=== PATIENT | male | born 1950 | race Caucasian/White ===

== ENCOUNTER 2017-03-03 19:17 | Observation (INO) | payer BC, MEDICARE, OTHER ==
[2017-03-03] VITALS (8 sets, daily range): BP systolic 128–144; BP diastolic 79–90; PULSE 110–114; RESP 18–20; TEMP 97.3–98.9; O2SAT 90–97
[~2017-03-03] VITALS: Ht 170.2 cm; Wt 84.2 kg
[~2017-03-03 19:17] MED LIST: GLYB1TAB51; LISI40TA; METF-324
[2017-03-03] MEDS ORDERED: SODIUM CHLORIDE 0.9% FLUSH 10 ML FLUSH IVF PRN (19:30)
--- NOTE | 2017-03-03 19:43 | PD ---
HPI Chief Complaint: Syncope/Near-Syncope Time Seen by Provider: 19:26 Travel History International Travel<30 days: No Contact w/Intl Traveler<30days: No Traveled to known affect area: No History of Present Illness HPI truly uncleared as to when this occurred, guestimate of fall/syncope is around 1400 today [facility] cabbg, htn, dm, hyperchol, toe amputations, (of note patient has h/o schizophrenia as well and is not compliant with medications) PFSH Past Medical History Asthma: No Heart Rhythm Problems: No Cardiovascular Problems: Yes High Cholesterol: No Chest Pain: Yes Congestive Heart Failure: No COPD: No Diabetes: Yes Endocrine: Yes Genitourinary: No Hypertension: Yes Immune Disorder: No Musculoskeletal: No Neurologic: No Reproductive: No Respiratory: Yes Integumentary: Yes (ULCER TO LEFT FOOT) Myocardial Infarction: Yes Schizophrenia: Yes (PARANOID) Sleep Apnea: No Thyroid Disease: No Past Surgical History Other Surgery: No Social History Alcohol Use: Yes Tobacco Use: No Substance Use: No Allergies-Medications (Allergen,Severity, Reaction): Coded Allergies: No Known Allergies (Verified Adverse Reaction, Unknown, 03/03/17) Reported Meds & Prescriptions Reported Meds & Active Scripts Active Reported Glucophage (Metformin HCl) 1,000 Mg Tab Prinivil (Lisinopril) 40 Mg Tab Diabeta (Glyburide) 5 Mg Tab Review of Systems Except as stated in HPI: all other systems reviewed are Neg General / Constitutional: No: Fever Eyes: No: Visual changes HENT: No: Headaches Cardiovascular: Positive: Syncope Respiratory: No: Shortness of Breath Gastrointestinal: No: Abdominal Pain Genitourinary: No: Dysuria Musculoskeletal: No: Pain Skin: Positive Other (left eye contusion with laceration) Neurologic: No: Weakness Psychiatric: No: Depression Endocrine: No: Polydipsia Hematologic/Lymphatic: No: Easy Bruising Physical Exam Narrative GENERAL: SKIN: Warm and dry. left periorbital contusion/hematoma with a 3cm laceration above left eyebrow HEAD: Atraumatic. Normocephalic. EYES: Pupils equal and round. No scleral icterus. No injection or drainage. ENT: No nasal bleeding or discharge. Mucous membranes pink and moist. NECK: Trachea midline. No JVD. CARDIOVASCULAR: Regular rate and rhythm. RESPIRATORY: No accessory muscle use. Clear to auscultation. Breath sounds equal bilaterally GASTROINTESTINAL: Abdomen soft, non-tender, nondistended. MUSCULOSKELETAL: Extremities without clubbing, cyanosis, or edema. No obvious deformities. NEUROLOGICAL: Awake and alert. No obvious cranial nerve deficits. Motor grossly within normal limits. Five out of 5 muscle strength in the arms and legs. Normal speech. PSYCHIATRIC: Appropriate mood and affect; insight and judgment normal. Data Data Last Documented VS Vital Signs Date Time Temp Pulse Resp B/P (MAP) Pulse Ox O2 Delivery O2 Flow Rate FiO2 03/03/17 19:42 97 03/03/17 19:35 112 18 Room Air 03/03/17 19:22 98.9 144/90 (108) Orders Orders Electrocardiogram (03/03/17 19:26) Complete Blood Count With Diff (03/03/17 19:26) Comprehensive Metabolic Panel (03/03/17 19:26) Troponin I (03/03/17 19:26) Act Partial Throm Time (Ptt) (03/03/17 19:26) Prothrombin Time / Inr (Pt) (03/03/17 19:26) Chest, Single Ap (03/03/17 19:26) Ct Brain W/O Iv Contrast(Rout) (03/03/17 19:26) Ecg Monitoring (03/03/17 19:26) Iv Access Insert/Monitor (03/03/17 19:26) Oximetry (03/03/17 19:26) Sodium Chloride 0.9% Flush (Ns Flush) (03/03/17 19:30) Ct Facial Bones W/O Iv Cont (03/03/17 19:26) Lidocaine 1% Inj (50 Ml) (Xylocaine 1% I (03/03/17 19:45) Labs Laboratory Tests Test 03/03/17 19:34 MDM Medical Decision Making Medical Screen Exam Complete: Yes Emergency Medical Condition: Yes Medical Record Reviewed: Yes Interpretation(s) sinus tachy, lvh, sig q waves inferiorly Differential Diagnosis facial fx v contusion v ich v scalp hematoma v syncope Procedures Procedure Narrative LACERATION LOCATION: [left forehead just above eyebrow] LENGTH: [3cm-] NUMBER OF STITCHES/JOSE: [1 horizontal mattress, 1 simple interrupted-] REPAIR: The area of the laceration was prepped with Betadine and sterilely draped. The laceration was infiltrated with [4ml of lido 1% w/o epi]. The wound was copiously irrigated and explored without evidence of foreign body, tendon injury or neurovascular injury. The wound was closed using [3-0 prolene] . This was a [single] layer repair. A sterile dressing was applied. The patient was advised to keep the dressing clean and dry. Patient tolerated the procedure well. Corona Torres MD Mar 03, 2017 19:43
[2017-03-03] MEDS ORDERED: LIDOCAINE HCL 1% 50 ML VIAL INFIL ONE (19:45)
--- NOTE | 2017-03-03 19:50 | RADRPT ---
EXAM DATE/TIME: 03/03/2017 19:36 [facility] COMPARISON: No previous studies available for comparison. INDICATIONS : Syncope. MEDICAL HISTORY : Diabetes mellitus type II. Schizophrenia, AFIB SURGICAL HISTORY : CABG. ENCOUNTER: Initial ACUITY: 1 day PAIN SCORE: 0/10 LOCATION: Bilateral chest FINDINGS: Cardiomegaly, median sternotomy wires and clips are present. The lungs are clear. Osseous structures are intact. CONCLUSION: No acute disease. Kwesi Balbuena MD on March 03, 2017 at 19:47 Board Certified Radiologist. This report was verified electronically.
[2017-03-03 19:53] LABS: AUTOMATED NEUTROPHIL # 11.4 TH/MM3 (1.8-7.7); BASOPHIL # 0.3 TH/MM3 (0-0.2); BASOPHIL % 2.2 % (0.0-2.0); EOSINOPHIL % 0.2 % (0.0-4.0); HEMATOCRIT 39.3 % (39.0-51.0); HEMOGLOBIN 13.2 GM/DL (13.0-17.0); LYMPH % 7.4 % (9.0-44.0); MEAN CELL VOLUME 89.6 FL (80.0-100.0); MEAN CORPUSCULAR HEMOGLOBIN 30.1 PG (27.0-34.0); MEAN CORPUSCULAR HGB CONC 33.5 % (32.0-36.0); MEAN PLATELET VOLUME 7.4 FL (7.0-11.0); MONO % 5.2 % (0.0-8.0); MONOCYTE # 0.7 TH/MM3 (0-0.9); PLATELET COUNT 332 TH/MM3 (150-450); RED BLOOD COUNT 4.39 MIL/MM3 (4.50-5.90); RED CELL DISTRIBUTION WIDTH 13.9 % (11.6-17.2); WHITE BLOOD COUNT 13.4 TH/MM3 (4.0-11.0)
[2017-03-03 20:02] LABS: CHLORIDE 102 MEQ/L (98-107); SODIUM (NA) 136 MEQ/L (136-145)
[2017-03-03 20:05] LABS: ALBUMIN 3.6 GM/DL (3.4-5.0); BICARBONATE 24.9 MEQ/L (21.0-32.0); BLOOD UREA NITROGEN 17 MG/DL (7-18); CALCIUM 8.6 MG/DL (8.5-10.1); GLUCOSE,RANDOM 199 MG/DL (74-106)
[2017-03-03 20:08] LABS: ALT (GPT) 35 U/L (12-78); AST (GOT) 30 U/L (15-37); GLOMERULAR FILTRATION RATE 67 ML/MIN (>89)
[2017-03-03 20:10] LABS: TOTAL BILIRUBIN ADULT 0.4 MG/DL (0.2-1.0); TOTAL PROTEIN 7.5 GM/DL (6.4-8.2)
[2017-03-03 20:11] LABS: ALKALINE PHOSPHATASE 100 U/L (45-117)
[2017-03-03 20:13] LABS: TROPONIN I 0.04 NG/ML (0.02-0.05)
--- NOTE | 2017-03-03 20:45 | RADRPT ---
EXAM DATE/TIME: 03/03/2017 20:27 [facility] COMPARISON: No previous studies available for comparison. INDICATIONS : Status post fall with LOC this evening. Patient hit forehead. Laceration to left brow. RADIATION DOSE: 63.28 CTDIvol (mGy) MEDICAL HISTORY : Hypertension. Diabetes mellitus type 2. SURGICAL HISTORY : CABG ENCOUNTER: Initial ACUITY: 1 day PAIN SCALE: 7/10 LOCATION: Left cranial TECHNIQUE: Multiple contiguous axial images were obtained of the head. Using automated exposure control and adj ustment of the mA and/or kV according to patient size, radiation dose was kept as low as reasonably a chievable to obtain optimal diagnostic quality images. DICOM format image data is available electro nically for review and comparison. FINDINGS: Left periorbital soft tissue swelling and scalp hematoma. Ventricles and cisterns are of normal size and configuration. There are no signs of intracranial hemorrhage, acute infarct, or mass. No fracture s. He CONCLUSION: 1. Left frontal scalp hematoma and soft tissue swelling. Kwesi Balbuena MD on March 03, 2017 at 20:42 Board Certified Radiologist. This report was verified electronically.
--- NOTE | 2017-03-03 20:52 | RADRPT ---
EXAM DATE/TIME: 03/03/2017 20:27 [facility] COMPARISON: No previous studies available for comparison. INDICATIONS : Status post fall with LOC this evening. Patient hit forehead. Laceration to left brow. RADIATION DOSE: 34.88 CTDIvol (mGy) MEDICAL HISTORY : Hypertension. Diabetes mellitus type 2. SURGICAL HISTORY : CABG ENCOUNTER: Initial ACUITY: 1 day PAIN SCORE: 7/10 LOCATION: Left facial TECHNIQUE: Volumetric scanning of the facial bones was performed. Using automated exposure control and adjustme nt of the mA and/or kV according to patient size, radiation dose was kept as low as reasonably achiev able to obtain optimal diagnostic quality images. DICOM format image data is available electronicall y for review and comparison. FINDINGS: ORBITS: The orbital and infraorbital osseous structures are intact. The retroconal structures have a normal configuration. No radiopaque foreign bodies are seen. NASAL BONE: The nasal bone and maxillary spine are intact ZYGOMATIC ARCHES: Symmetric without evidence of fracture. SINUSES: Air-fluid level in the right maxillary sinus otherwise normal aeration of the paranasal sinuses. NASAL CAVITY: The nasal septum is intact and midline. The lacrimal ducts are intact. SOFT TISSUES: There is left supraorbital/frontal scalp hematoma measuring 2.7 cm with soft tissue swelling identifi ed. Prominent left cyndi-orbital soft tissue swelling is seen. INTRACRANIAL: No intracranial air seen. CRIBIFORM PLATE: Grossly intact. CONCLUSION: 1. Left periorbital scalp soft tissue swelling and hematoma. 2. Right maxillary sinus air-fluid level. 3. No fractures are seen. Kwesi Balbuena MD on March 03, 2017 at 20:49 Board Certified Radiologist. This report was verified electronically.
[2017-03-03] MEDS ORDERED: XARE20TA PO (21:01)
[2017-03-03] MEDS ORDERED: DEXTROSE 50% IN WATER 50 ML VIAL(D50) IV PUSH PRN (21:15)
[2017-03-03] MEDS ORDERED: SODIUM CHLORIDE 0.9% FLUSH 10 ML FLUSH IV FLUSH PRN (21:15)
[2017-03-03] MEDS ORDERED: GLUCAGON 1 MG/ML VIAL OTHER PRN (21:15)
[2017-03-03 21:38] LABS: PROTHROMBIN TIME - PATIENT 11.6 SEC (9.8-11.6)
[2017-03-03] MEDS ORDERED: METF850T PO (21:41)
[2017-03-03] MEDS ORDERED: LISI-515 PO (21:41)
[2017-03-03] MEDS ORDERED: AMIO200T PO (21:41)
[2017-03-03] MEDS ORDERED: ATOR80TA45 PO (21:41)
[2017-03-03] MEDS ORDERED: KAOP240C PO (21:41)
[2017-03-03] MEDS ORDERED: ASPI-516 CHEW (21:41)
[2017-03-03] MEDS ORDERED: NITR1SUB3 SL (21:41)
[2017-03-03] MEDS ORDERED: TAMS0.4C4 PO (21:41)
--- NOTE | 2017-03-03 22:31 | RADRPT ---
EXAM DATE/TIME: 03/03/2017 22:01 [facility] COMPARISON: No previous studies available for comparison. INDICATIONS : Syncope. MEDICAL HISTORY : Myocardial infarction. Hypertension. Diabetes. SURGICAL HISTORY : CABG. Coronary artery stent. Right big toe amputated. ENCOUNTER: Initial ACUITY: 1 day PAIN SCORE: 2/10 LOCATION: Bilateral neck PEAK SYSTOLIC VELOCITIES (cm/sec): ICA/CCA RATIO: Right: 2.2 Left: 1.4 ICA: Right: 94 Left: 78 CCA: Right: 43 Left: 56 ECA: Right: 64 Left: 108 VERTEBRAL: Right: 36 antegrade Left: 43 antegrade Elevated flow velocities and ICA/CCA ratios have been found to correlate with increased degrees of vessel stenosis, calculated as percentage of diameter relative to a normal segment of distal ICA/CCA FINDINGS: RIGHT CAROTID: No significant stenosis is visualized. The waveforms are within normal limits. LEFT CAROTID: No significant stenosis is visualized. The waveforms are within normal limits. VERTEBRAL ARTERIES: Antegrade flow is seen in both vertebral arteries. MISCELLANEOUS: None. CONCLUSION: 1. No evidence for hemodynamically significant stenosis. Moderate atherosclerosis is seen bilaterally . Kwesi Balbuena MD on March 03, 2017 at 22:28 Board Certified Radiologist. This report was verified electronically.
[2017-03-03] MEDS: ACETAMINOPHEN/HYDROcodone 325 MG/5 MG TAB PO PRN (23:10)
[2017-03-03] MEDS ORDERED: MORPHINE SULFATE 2 MG/ML INJ IV PUSH PRN (23:15)
[2017-03-04] MEDS: ACETAMINOPHEN/HYDROcodone 325 MG/5 MG TAB PO PRN ×4 (03:37→16:58)
[2017-03-04 04:00] VITALS: BP 123/60; PULSE 77; RESP 20; TEMP 96.6; O2SAT 94
[2017-03-04 07:18] LABS: AUTOMATED NEUTROPHIL # 6.6 TH/MM3 (1.8-7.7); BASOPHIL % 0.4 % (0.0-2.0); EOSINOPHIL # 0.1 TH/MM3 (0-0.4); EOSINOPHIL % 1.6 % (0.0-4.0); HEMATOCRIT 39.1 % (39.0-51.0); HEMOGLOBIN 13.2 GM/DL (13.0-17.0); LYMPHOCYTE # 1.4 TH/MM3 (1.0-4.8); MEAN CORPUSCULAR HEMOGLOBIN 30.6 PG (27.0-34.0); MEAN CORPUSCULAR HGB CONC 33.6 % (32.0-36.0); MEAN PLATELET VOLUME 7.6 FL (7.0-11.0); MONO % 11.4 % (0.0-8.0); NEUT % 71.6 % (16.0-70.0); PLATELET COUNT 297 TH/MM3 (150-450); RED CELL DISTRIBUTION WIDTH 14.7 % (11.6-17.2); WHITE BLOOD COUNT 9.1 TH/MM3 (4.0-11.0)
[2017-03-04 07:25] LABS: BICARBONATE 29.9 MEQ/L (21.0-32.0)
[2017-03-04 07:28] LABS: CREATININE 0.99 MG/DL (0.60-1.30)
[2017-03-04 08:00] VITALS: BP 139/65; PULSE 40; RESP 18; TEMP 97; O2SAT 95
[2017-03-04] MEDS: INSULIN ASPART SUPPLEMENTAL SCALE SQ SCH ×3 (08:00→16:57)
[2017-03-04 08:50] VITALS: PULSE 79
[2017-03-04] MEDS ORDERED: SODIUM CHLORIDE 0.9% FLUSH 10 ML FLUSH IV FLUSH SCH (09:00)
[2017-03-04] MEDS ORDERED: AMIODARONE 200 MG TAB PO SCH (11:00)
[2017-03-04] MEDS ORDERED: ASPIRIN 81 MG CHEW TAB CHEW SCH (11:00)
[2017-03-04] MEDS ORDERED: RIVAROXABAN 20 MG TAB PO SCH (11:00)
[2017-03-04 12:00] VITALS: BP 148/73; PULSE 84; RESP 18; TEMP 97.7; O2SAT 95
--- NOTE | 2017-03-04 12:05 | EKG ---
Date Performed: 03/03/2017 Time Performed: 19:32:52 PTAGE: 66 years EKG: Sinus tachycardia LEFT ANTERIOR FASCICULAR BLOCK INFERIOR MYOCARDIAL INFARCTION MODERATE T- WAVE ABNORMALITY, CONSIDER LATERAL ISCHEMIA ABNORMAL ECG PREVIOUS TRACING : 01/26/2006 05.51 DOCTOR: Chris Esquivel Interpretating Date/Time 03/04/2017 12:03:32
--- NOTE | 2017-03-04 15:38 | HHI.HP ---
[facility] Service [facility] Primary Care Physician Non-Staff Admission Diagnosis SYNCOPE, LEFT PERIORBITAL CONTUSION Diagnoses: (1) Syncope (2) Elevated troponin I level (3) Forehead laceration Travel History International Travel<30 Days: No Contact w/Intl Traveler <30 Da: No Traveled to Known Affected Are: No History of Present Illness This is a pleasant 66 year-old female with past medical history of type 2 diabetes, coronary artery disease status post CABG 1 year ago, paroxysmal atrial fibrillation who presented to the ER last night after a syncopal episode in which she fell and hit his left forehead. The patient states he had been working outdoors in the yard all day. He was getting dizzy. As he was standing outside his garage he felt dizziness, on and then he passed out falling forward and hitting his left forehead. There was no seizure- like activity no bowel incontinence. The patient has not had any chest pain or chest pressure or exertional dyspnea. The patient has no previous history of syncope. The patient is supposed to take Xarelto for atrial fibrillation but stopped taking it due to concerns about easy bruising and he did not understand why he was supposed to take it; he states his brownfield redevelopment site manager is aware that he no longer takes it. The patient takes only one quarter of an 81 mg aspirin daily due to concerns about bruising. The patient has a self purchased device that he states tells him whether he is in atrial fibrillation or not by placing his fingers on it. Today the device is telling him he is in atrial fibrillation, however EKG and telemetry show that he is in sinus rhythm. Patient states he has not had a stress test since his bypass one year ago. His brownfield redevelopment site manager is Dr. Marvin in [place]. He has an appointment with him this month. In the emergency insole department worker CT and maxillofacial CT were negative for acute fracture or bleed. He did have a left forehead laceration that was sutured in the emergency department. The patient today states that he feels better with less swelling around his left eye. He has remained in sinus rhythm overnight. The patient would like to go home. The patient is ambulated 200 feet with physical therapy. Patient declines stress test stating he would prefer to follow-up with his brownfield redevelopment site manager. Review of Systems Constitutional: DENIES: Fever, Chills Eyes: DENIES: Blurred vision, Diplopia Ears, nose, mouth, throat: DENIES: Throat pain, Running Nose Respiratory: DENIES: Cough, Shortness of breath Cardiovascular: COMPLAINS OF: Syncope, DENIES: Chest pain, Palpitations, Dyspnea on Exertion Gastrointestinal: DENIES: Black stools, Nausea, Vomiting Genitourinary: DENIES: Hematuria, Dysuria Musculoskeletal: DENIES: Back pain, Neck pain Integumentary: DENIES: Pruritus, Rash Hematologic/lymphatic: DENIES: Lymphadenopathy Neurologic: DENIES: Abnormal gait, Headache Psychiatric: DENIES: Anxiety, Confusion Past Family Social History Past Medical History Paroxysmal atrial fibrillation Hypertension Diabetes type 2 Coronary artery disease status post CABG 1 year ago Myocardial infarction Hyperlipidemia BPH Reported Medications Allergies Coded Allergies Type Severity Reaction Last Updated Verified No Known Allergies Allergy Unknown 03/03/17 Yes Active Scripts Medications Dose Route/Sig Max Daily Dose Days Date Category Dose Instructions Metformin (Metformin HCl) 850 Mg Tab 850 Mg PO DAILY 03/03/17 Reported With a meal Lisinopril 20 Mg Tab 20 Mg PO DAILY 03/03/17 Reported Surfak (Docusate Calcium) 240 Mg Cap 240 Mg PO DAILY 03/03/17 Reported Nitroglycerin SL (Nitroglycerin) 0.4 Mg Subl 0.4 Mg SL DIRECTED PRN 03/03/17 Reported ONE TABLET UNDER THE TONGUE NEEDED FOR CHEST PAIN, MAY REPEAT EVERY FIVE MINUTES FOR A TOTAL OF 3 DOSES OR CALL 911 IF NO RELIEF Tamsulosin (Tamsulosin HCl) 0.4 Mg Cap 0.4 Mg PO HS 03/03/17 Reported Atorvastatin (Atorvastatin Calcium) 80 Mg Tab 80 Mg PO HS 03/03/17 Reported Aspirin 81 Mg Chew 81 Mg CHEW DAILY 03/03/17 Reported Amiodarone (Amiodarone HCl) 200 Mg Tab 200 Mg PO DAILY 03/03/17 Reported Xarelto (Rivaroxaban) 20 Mg Tab 20 Mg PO DAILY 03/03/17 Reported Allergies: Coded Allergies: No Known Allergies (Verified Allergy, Unknown, 03/03/17) Family History Father had coronary artery disease. Social History No tobacco use. He used to drink moderately but stopped several years ago. Physical Exam Vital Signs Vital Signs Date Time Temp Pulse Resp B/P (MAP) Pulse Ox O2 Delivery O2 Flow Rate FiO2 03/04/17 12:00 97.7 84 18 148/73 (98) 95 03/04/17 08:00 97.0 40 18 139/65 (89) 95 03/04/17 04:00 96.6 77 20 123/60 (81) 94 03/03/17 22:45 110 03/03/17 22:34 97.3 110 20 137/84 (101) 96 03/03/17 22:28 111 18 138/82 (100) 96 03/03/17 21:17 111 18 128/79 (95) 96 Room Air 03/03/17 20:06 114 18 140/88 (105) 96 Room Air 03/03/17 19:42 97 03/03/17 19:35 112 18 97 Room Air 03/03/17 19:32 112 18 139/88 (105) 96 Room Air 03/03/17 19:22 98.9 114 20 144/90 (108) 94 Physical Exam GENERAL: Well-nourished, well-developed patient. SKIN: Warm and dry. HEAD: Left forehead laceration just above left eyebrow clean dry and intact with sutures. EYES: He has some mild left cyndi-orbital edema and ecchymosis. Pupils equal reactive to light. No scleral icterus. No injection or drainage. NECK: Supple, trachea midline. No JVD or lymphadenopathy. CARDIOVASCULAR: Regular rate and rhythm without murmurs, gallops, or rubs. RESPIRATORY: Breath sounds equal bilaterally. No accessory muscle use. GASTROINTESTINAL: Abdomen soft, non-tender, nondistended. EXTREMITIES: No cyanosis, or edema. NEUROLOGICAL: Awake, alert, and oriented x 3. Non-focal. Laboratory Laboratory Tests Test 03/03/17 19:34 03/04/17 01:30 03/04/17 06:16 03/04/17 12:18 White Blood Count 13.4 9.1 Red Blood Count 4.39 4.30 Hemoglobin 13.2 13.2 Hematocrit 39.3 39.1 Mean Corpuscular Volume 89.6 91.0 Mean Corpuscular Hemoglobin 30.1 30.6 Mean Corpuscular Hemoglobin Concent 33.5 33.6 Red Cell Distribution Width 13.9 14.7 Platelet Count 332 297 Mean Platelet Volume 7.4 7.6 Neutrophils (%) (Auto) 85.0 71.6 Lymphocytes (%) (Auto) 7.4 15.0 Monocytes (%) (Auto) 5.2 11.4 Eosinophils (%) (Auto) 0.2 1.6 Basophils (%) (Auto) 2.2 0.4 Neutrophils # (Auto) 11.4 6.6 Lymphocytes # (Auto) 1.0 1.4 Monocytes # (Auto) 0.7 1.0 Eosinophils # (Auto) 0.0 0.1 Basophils # (Auto) 0.3 0.0 CBC Comment AUTO DIFF DIFF FINAL Differential Comment AUTO DIFF CONFIRMED Platelet Estimate NORMAL Platelet Morphology Comment NORMAL Red Cell Morphology Comment NORMAL Prothrombin Time 11.6 Prothromb Time International Ratio 1.0 Activated Partial Thromboplast Time 29.9 Blood Urea Nitrogen 17 16 Creatinine 1.10 0.99 Random Glucose 199 128 Total Protein 7.5 Albumin 3.6 Calcium Level 8.6 9.0 Alkaline Phosphatase 100 Aspartate Amino Transf (AST/SGOT) 30 Alanine Aminotransferase (ALT/SGPT) 35 Total Bilirubin 0.4 Sodium Level 136 138 Potassium Level 4.2 4.2 Chloride Level 102 102 Carbon Dioxide Level 24.9 29.9 Anion Gap 9 6 Estimat Glomerular Filtration Rate 67 75 Troponin I 0.04 0.14 0.17 Result Diagram: 03/04/1761503/04/17615 Imaging Last Impressions Maxillofacial CT 03/03/171925 Signed Impressions: Service Date/Time: Friday, March 03, 2017 20:27 - CONCLUSION: 1. Left periorbital scalp soft tissue swelling and hematoma. 2. Right maxillary sinus air-fluid level. 3. No fractures are seen. Kwesi Balbuena MD Head CT 03/03/171925 Signed Impressions: Service Date/Time: Friday, March 03, 2017 20:27 - CONCLUSION: 1. Left frontal scalp hematoma and soft tissue swelling. Kwesi Balbuena MD Chest X-Ray 03/03/171925 Signed Impressions: Service Date/Time: Friday, March 03, 2017 19:36 - CONCLUSION: No acute disease. Kwesi Balbuena MD Carotid Artery Ultrasound 03/03/17 0000 Signed Impressions: Service Date/Time: Saturday, March 03, 2017 22:01 - CONCLUSION: 1. No evidence for hemodynamically significant stenosis. Moderate atherosclerosis is seen bilaterally. MD Ilya Levin VTE Risk Assessment Caprini VTE Risk Assessment: Mod/High Risk (score >= 2) Caprini Risk Assessment Model Point Value = 1 Point Value = 2 Point Value = 3 Point Value = 5 Age 41-60 Minor surgery BMI > 25 kg/m2 Swollen legs Varicose veins or History of unexplained or recurrent spontaneous Oral contraceptives or hormone replacement Sepsis (< 1 month) Serious lung disease, including pneumonia (< 1 month) Abnormal pulmonary function Acute myocardial infarction Congestive heart failure (< 1 month) History of inflammatory bowel disease Medical patient at bed rest Age 61-74 Arthroscopic surgery Major open surgery (> 45 min) Laparoscopic surgery (> 45 min) Malignancy Confined to bed (> 72 hours) Immobilizing plaster cast Central venous access Age >= 75 History of VTE Family history of VTE Factor V Leiden Prothrombin [id number] Lupus anticoagulant Anticardiolipin antibodies Elevated serum homocysteine Heparin-induced thrombocytopenia Other congenital or acquired thrombophilia Stroke (< 1 month) Elective arthroplasty Hip, pelvis, or leg fracture Acute spinal cord injury (< 1 month) Prophylaxis Regimen Total Risk Factor Score Risk Level Prophylaxis Regimen 0-1 Low Early ambulation 2 Moderate Order ONE of the following: *Sequential Compression Device (SCD) *Heparin 5000 units SQ BID 3-4 Higher Order ONE of the following medications: *Heparin 5000 units SQ TID *Enoxaparin/Lovenox 40 mg SQ daily (WT < 150 kg, CrCl > 30 mL/min) *Enoxaparin/Lovenox 30 mg SQ daily (WT < 150 kg, CrCl > 10-29 mL/min) *Enoxaparin/Lovenox 30 mg SQ BID (WT < 150 kg, CrCl > 30 mL/min) AND/OR *Sequential Compression Device (SCD) 5 or more Highest Order ONE of the following medications: *Heparin 5000 units SQ TID (Preferred with Epidurals) *Enoxaparin/Lovenox 40 mg SQ daily (WT < 150 kg, CrCl > 30 mL/min) *Enoxaparin/Lovenox 30 mg SQ daily (WT < 150 kg, CrCl > 10-29 mL/min) *Enoxaparin/Lovenox 30 mg SQ BID (WT < 150 kg, CrCl > 30 mL/min) AND *Sequential Compression Device (SCD) Assessment and Plan Assessment and Plan -Syncope, it sounds as if it was orthostatic in nature with presyncopal symptoms and the patient had been working outside in his yard. No orthostatic vital signs collected in the emergency department. EKG showed sinus rhythm. Doppler carotid negative for stenosis. 2-D echocardiogram pending. Patient is ambulating well. -Left forehead laceration. Sutures placed in the ED and need to be removed in 7 days. Patient will follow-up with his primary care physician to do this. -Minimal troponin elevation to 0.17. In the absence of chest pain or chest pressure. Patient status post CABG 1 year ago. I did recommend nuclear stress test however the patient declines stating he would like to follow-up with his brownfield redevelopment site manager this month. Patient was encouraged to take aspirin daily. Encouraged to return to ER if he should develop chest pain. -Paroxysmal atrial fibrillation. In sinus rhythm throughout hospitalization. Patient is supposed to be taking Xarelto but stopped taking that. He states his brownfield redevelopment site manager is aware. I did encourage patient to take 81 mg of aspirin a day at least and discuss further with his brownfield redevelopment site manager anticoagulation. Continue amiodarone. Patient may be discharged home later today if his echocardiogram does not show significant valvular disease. Patient to follow-up with primary care physician in one week and with his brownfield redevelopment site manager this month. Sutures to be removed in 7 days. Patient encouraged to stay hydrated and avoid strenuous activity. Patient was provided a note excusing him from work for the next week as he works as a sales team manager and has significant bruising around the left eye. Ashley Brooks MD Mar 04, 2017 15:38
--- NOTE | 2017-03-04 15:38 | HHI.HP ---
[facility] Non-Staff Admission Diagnosis SYNCOPE, LEFT PERIORBITAL CONTUSION Diagnoses: (1) Syncope (2) Elevated troponin I level (3) Forehead laceration Travel History International Travel<30 Days: No Contact w/Intl Traveler <30 Da: No Traveled to Known Affected Are: No History of Present Illness This is a pleasant 66 year-old female with past medical history of type 2 diabetes, coronary artery disease status post CABG 1 year ago, paroxysmal atrial fibrillation who presented to the ER last night after a syncopal episode in which she fell and hit his left forehead. The patient states he had been working outdoors in the yard all day. He was getting dizzy. As he was standing outside his garage he felt dizziness, on and then he passed out falling forward and hitting his left forehead. There was no seizure- like activity no bowel incontinence. The patient has not had any chest pain or chest pressure or exertional dyspnea. The patient has no previous history of syncope. The patient is supposed to take Xarelto for atrial fibrillation but stopped taking it due to concerns about easy bruising and he did not understand why he was supposed to take it; he states his food and beverage assistant is aware that he no longer takes it. The patient takes only one quarter of an 81 mg aspirin daily due to concerns about bruising. The patient has a self purchased device that he states tells him whether he is in atrial fibrillation or not by placing his fingers on it. Today the device is telling him he is in atrial fibrillation, however EKG and telemetry show that he is in sinus rhythm. Patient states he has not had a stress test since his bypass one year ago. His food and beverage assistant is Dr. Marvin in [place]. He has an appointment with him this month. In the emergency departmental secretary CT and maxillofacial CT were negative for acute fracture or bleed. He did have a left forehead laceration that was sutured in the emergency department. The patient today states that he feels better with less swelling around his left eye. He has remained in sinus rhythm overnight. The patient would like to go home. The patient is ambulated 200 feet with physical therapy. Patient declines stress test stating he would prefer to follow-up with his food and beverage assistant. Review of Systems Constitutional: DENIES: Fever, Chills Eyes: DENIES: Blurred vision, Diplopia Ears, nose, mouth, throat: DENIES: Throat pain, Running Nose Respiratory: DENIES: Cough, Shortness of breath Cardiovascular: COMPLAINS OF: Syncope, DENIES: Chest pain, Palpitations, Dyspnea on Exertion Gastrointestinal: DENIES: Black stools, Nausea, Vomiting Genitourinary: DENIES: Hematuria, Dysuria Musculoskeletal: DENIES: Back pain, Neck pain Integumentary: DENIES: Pruritus, Rash Hematologic/lymphatic: DENIES: Lymphadenopathy Neurologic: DENIES: Abnormal gait, Headache Psychiatric: DENIES: Anxiety, Confusion Past Family Social History Past Medical History Paroxysmal atrial fibrillation Hypertension Diabetes type 2 Coronary artery disease status post CABG 1 year ago Myocardial infarction Hyperlipidemia BPH Reported Medications Allergies Coded Allergies Type Severity Reaction Last Updated Verified No Known Allergies Allergy Unknown 03/03/17 Yes Active Scripts Medications Dose Route/Sig Max Daily Dose Days Date Category Dose Instructions Metformin (Metformin HCl) 850 Mg Tab 850 Mg PO DAILY 03/03/17 Reported With a meal Lisinopril 20 Mg Tab 20 Mg PO DAILY 03/03/17 Reported Surfak (Docusate Calcium) 240 Mg Cap 240 Mg PO DAILY 03/03/17 Reported Nitroglycerin SL (Nitroglycerin) 0.4 Mg Subl 0.4 Mg SL DIRECTED PRN 03/03/17 Reported ONE TABLET UNDER THE TONGUE NEEDED FOR CHEST PAIN, MAY REPEAT EVERY FIVE MINUTES FOR A TOTAL OF 3 DOSES OR CALL 911 IF NO RELIEF Tamsulosin (Tamsulosin HCl) 0.4 Mg Cap 0.4 Mg PO HS 03/03/17 Reported Atorvastatin (Atorvastatin Calcium) 80 Mg Tab 80 Mg PO HS 03/03/17 Reported Aspirin 81 Mg Chew 81 Mg CHEW DAILY 03/03/17 Reported Amiodarone (Amiodarone HCl) 200 Mg Tab 200 Mg PO DAILY 03/03/17 Reported Xarelto (Rivaroxaban) 20 Mg Tab 20 Mg PO DAILY 03/03/17 Reported Allergies: Coded Allergies: No Known Allergies (Verified Allergy, Unknown, 03/03/17) Family History Father had coronary artery disease. Social History No tobacco use. He used to drink moderately but stopped several years ago. Physical Exam Vital Signs Vital Signs Date Time Temp Pulse Resp B/P (MAP) Pulse Ox O2 Delivery O2 Flow Rate FiO2 03/04/17 12:00 97.7 84 18 148/73 (98) 95 03/04/17 08:00 97.0 40 18 139/65 (89) 95 03/04/17 04:00 96.6 77 20 123/60 (81) 94 03/03/17 22:45 110 03/03/17 22:34 97.3 110 20 137/84 (101) 96 03/03/17 22:28 111 18 138/82 (100) 96 03/03/17 21:17 111 18 128/79 (95) 96 Room Air 03/03/17 20:06 114 18 140/88 (105) 96 Room Air 03/03/17 19:42 97 03/03/17 19:35 112 18 97 Room Air 03/03/17 19:32 112 18 139/88 (105) 96 Room Air 03/03/17 19:22 98.9 114 20 144/90 (108) 94 Physical Exam GENERAL: Well-nourished, well-developed patient. SKIN: Warm and dry. HEAD: Left forehead laceration just above left eyebrow clean dry and intact with sutures. EYES: He has some mild left cyndi-orbital edema and ecchymosis. Pupils equal reactive to light. No scleral icterus. No injection or drainage. NECK: Supple, trachea midline. No JVD or lymphadenopathy. CARDIOVASCULAR: Regular rate and rhythm without murmurs, gallops, or rubs. RESPIRATORY: Breath sounds equal bilaterally. No accessory muscle use. GASTROINTESTINAL: Abdomen soft, non-tender, nondistended. EXTREMITIES: No cyanosis, or edema. NEUROLOGICAL: Awake, alert, and oriented x 3. Non-focal. Laboratory Laboratory Tests Test 03/03/17 19:34 03/04/17 01:30 03/04/17 06:16 03/04/17 12:18 White Blood Count 13.4 9.1 Red Blood Count 4.39 4.30 Hemoglobin 13.2 13.2 Hematocrit 39.3 39.1 Mean Corpuscular Volume 89.6 91.0 Mean Corpuscular Hemoglobin 30.1 30.6 Mean Corpuscular Hemoglobin Concent 33.5 33.6 Red Cell Distribution Width 13.9 14.7 Platelet Count 332 297 Mean Platelet Volume 7.4 7.6 Neutrophils (%) (Auto) 85.0 71.6 Lymphocytes (%) (Auto) 7.4 15.0 Monocytes (%) (Auto) 5.2 11.4 Eosinophils (%) (Auto) 0.2 1.6 Basophils (%) (Auto) 2.2 0.4 Neutrophils # (Auto) 11.4 6.6 Lymphocytes # (Auto) 1.0 1.4 Monocytes # (Auto) 0.7 1.0 Eosinophils # (Auto) 0.0 0.1 Basophils # (Auto) 0.3 0.0 CBC Comment AUTO DIFF DIFF FINAL Differential Comment AUTO DIFF CONFIRMED Platelet Estimate NORMAL Platelet Morphology Comment NORMAL Red Cell Morphology Comment NORMAL Prothrombin Time 11.6 Prothromb Time International Ratio 1.0 Activated Partial Thromboplast Time 29.9 Blood Urea Nitrogen 17 16 Creatinine 1.10 0.99 Random Glucose 199 128 Total Protein 7.5 Albumin 3.6 Calcium Level 8.6 9.0 Alkaline Phosphatase 100 Aspartate Amino Transf (AST/SGOT) 30 Alanine Aminotransferase (ALT/SGPT) 35 Total Bilirubin 0.4 Sodium Level 136 138 Potassium Level 4.2 4.2 Chloride Level 102 102 Carbon Dioxide Level 24.9 29.9 Anion Gap 9 6 Estimat Glomerular Filtration Rate 67 75 Troponin I 0.04 0.14 0.17 Result Diagram: 03/04/1761503/04/17615 Imaging Last Impressions Maxillofacial CT 03/03/171925 Signed Impressions: Service Date/Time: Friday, March 03, 2017 20:27 - CONCLUSION: 1. Left periorbital scalp soft tissue swelling and hematoma. 2. Right maxillary sinus air-fluid level. 3. No fractures are seen. Kwesi Balbuena MD Head CT 03/03/171925 Signed Impressions: Service Date/Time: Friday, March 03, 2017 20:27 - CONCLUSION: 1. Left frontal scalp hematoma and soft tissue swelling. Kwesi Balbuena MD Chest X-Ray 03/03/171925 Signed Impressions: Service Date/Time: Friday, March 03, 2017 19:36 - CONCLUSION: No acute disease. Kwesi Balbuena MD Carotid Artery Ultrasound 03/03/17 0000 Signed Impressions: Service Date/Time: Saturday, March 03, 2017 22:01 - CONCLUSION: 1. No evidence for hemodynamically significant stenosis. Moderate atherosclerosis is seen bilaterally. MD Ilya Levin VTE Risk Assessment Caprini VTE Risk Assessment: Mod/High Risk (score >= 2) Caprini Risk Assessment Model Point Value = 1 Point Value = 2 Point Value = 3 Point Value = 5 Age 41-60 Minor surgery BMI > 25 kg/m2 Swollen legs Varicose veins or History of unexplained or recurrent spontaneous Oral contraceptives or hormone replacement Sepsis (< 1 month) Serious lung disease, including pneumonia (< 1 month) Abnormal pulmonary function Acute myocardial infarction Congestive heart failure (< 1 month) History of inflammatory bowel disease Medical patient at bed rest Age 61-74 Arthroscopic surgery Major open surgery (> 45 min) Laparoscopic surgery (> 45 min) Malignancy Confined to bed (> 72 hours) Immobilizing plaster cast Central venous access Age >= 75 History of VTE Family history of VTE Factor V Leiden Prothrombin [id number] Lupus anticoagulant Anticardiolipin antibodies Elevated serum homocysteine Heparin-induced thrombocytopenia Other congenital or acquired thrombophilia Stroke (< 1 month) Elective arthroplasty Hip, pelvis, or leg fracture Acute spinal cord injury (< 1 month) Prophylaxis Regimen Total Risk Factor Score Risk Level Prophylaxis Regimen 0-1 Low Early ambulation 2 Moderate Order ONE of the following: *Sequential Compression Device (SCD) *Heparin 5000 units SQ BID 3-4 Higher Order ONE of the following medications: *Heparin 5000 units SQ TID *Enoxaparin/Lovenox 40 mg SQ daily (WT < 150 kg, CrCl > 30 mL/min) *Enoxaparin/Lovenox 30 mg SQ daily (WT < 150 kg, CrCl > 10-29 mL/min) *Enoxaparin/Lovenox 30 mg SQ BID (WT < 150 kg, CrCl > 30 mL/min) AND/OR *Sequential Compression Device (SCD) 5 or more Highest Order ONE of the following medications: *Heparin 5000 units SQ TID (Preferred with Epidurals) *Enoxaparin/Lovenox 40 mg SQ daily (WT < 150 kg, CrCl > 30 mL/min) *Enoxaparin/Lovenox 30 mg SQ daily (WT < 150 kg, CrCl > 10-29 mL/min) *Enoxaparin/Lovenox 30 mg SQ BID (WT < 150 kg, CrCl > 30 mL/min) AND *Sequential Compression Device (SCD) Assessment and Plan Assessment and Plan -Syncope, it sounds as if it was orthostatic in nature with presyncopal symptoms and the patient had been working outside in his yard. No orthostatic vital signs collected in the emergency department. EKG showed sinus rhythm. Doppler carotid negative for stenosis. 2-D echocardiogram pending. Patient is ambulating well. -Left forehead laceration. Sutures placed in the ED and need to be removed in 7 days. Patient will follow-up with his primary care physician to do this. -Minimal troponin elevation to 0.17. In the absence of chest pain or chest pressure. Patient status post CABG 1 year ago. I did recommend nuclear stress test however the patient declines stating he would like to follow-up with his food and beverage assistant this month. Patient was encouraged to take aspirin daily. Encouraged to return to ER if he should develop chest pain. -Paroxysmal atrial fibrillation. In sinus rhythm throughout hospitalization. Patient is supposed to be taking Xarelto but stopped taking that. He states his food and beverage assistant is aware. I did encourage patient to take 81 mg of aspirin a day at least and discuss further with his food and beverage assistant anticoagulation. Continue amiodarone. Patient may be discharged home later today if his echocardiogram does not show significant valvular disease. Patient to follow-up with primary care physician in one week and with his food and beverage assistant this month. Sutures to be removed in 7 days. Patient encouraged to stay hydrated and avoid strenuous activity. Patient was provided a note excusing him from work for the next week as he works as a applications sales consultant and has significant bruising around the left eye. Ashley Brooks MD Mar 04, 2017 15:38
--- NOTE | 2017-03-04 15:38 | HHI.HP ---
[facility] Service [facility] Primary Care Physician Non-Staff Admission Diagnosis SYNCOPE, LEFT PERIORBITAL CONTUSION Diagnoses: (1) Syncope (2) Elevated troponin I level (3) Forehead laceration Travel History International Travel<30 Days: No Contact w/Intl Traveler <30 Da: No Traveled to Known Affected Are: No History of Present Illness This is a pleasant 66 year-old female with past medical history of type 2 diabetes, coronary artery disease status post CABG 1 year ago, paroxysmal atrial fibrillation who presented to the ER last night after a syncopal episode in which she fell and hit his left forehead. The patient states he had been working outdoors in the yard all day. He was getting dizzy. As he was standing outside his garage he felt dizziness, on and then he passed out falling forward and hitting his left forehead. There was no seizure- like activity no bowel incontinence. The patient has not had any chest pain or chest pressure or exertional dyspnea. The patient has no previous history of syncope. The patient is supposed to take Xarelto for atrial fibrillation but stopped taking it due to concerns about easy bruising and he did not understand why he was supposed to take it; he states his estate and trust tax principal is aware that he no longer takes it. The patient takes only one quarter of an 81 mg aspirin daily due to concerns about bruising. The patient has a self purchased device that he states tells him whether he is in atrial fibrillation or not by placing his fingers on it. Today the device is telling him he is in atrial fibrillation, however EKG and telemetry show that he is in sinus rhythm. Patient states he has not had a stress test since his bypass one year ago. His estate and trust tax principal is Dr. Marvin in [place]. He has an appointment with him this month. In the emergency department supervisor CT and maxillofacial CT were negative for acute fracture or bleed. He did have a left forehead laceration that was sutured in the emergency department. The patient today states that he feels better with less swelling around his left eye. He has remained in sinus rhythm overnight. The patient would like to go home. The patient is ambulated 200 feet with physical therapy. Patient declines stress test stating he would prefer to follow-up with his estate and trust tax principal. Review of Systems Constitutional: DENIES: Fever, Chills Eyes: DENIES: Blurred vision, Diplopia Ears, nose, mouth, throat: DENIES: Throat pain, Running Nose Respiratory: DENIES: Cough, Shortness of breath Cardiovascular: COMPLAINS OF: Syncope, DENIES: Chest pain, Palpitations, Dyspnea on Exertion Gastrointestinal: DENIES: Black stools, Nausea, Vomiting Genitourinary: DENIES: Hematuria, Dysuria Musculoskeletal: DENIES: Back pain, Neck pain Integumentary: DENIES: Pruritus, Rash Hematologic/lymphatic: DENIES: Lymphadenopathy Neurologic: DENIES: Abnormal gait, Headache Psychiatric: DENIES: Anxiety, Confusion Past Family Social History Past Medical History Paroxysmal atrial fibrillation Hypertension Diabetes type 2 Coronary artery disease status post CABG 1 year ago Myocardial infarction Hyperlipidemia BPH Reported Medications Allergies Coded Allergies Type Severity Reaction Last Updated Verified No Known Allergies Allergy Unknown 03/03/17 Yes Active Scripts Medications Dose Route/Sig Max Daily Dose Days Date Category Dose Instructions Metformin (Metformin HCl) 850 Mg Tab 850 Mg PO DAILY 03/03/17 Reported With a meal Lisinopril 20 Mg Tab 20 Mg PO DAILY 03/03/17 Reported Surfak (Docusate Calcium) 240 Mg Cap 240 Mg PO DAILY 03/03/17 Reported Nitroglycerin SL (Nitroglycerin) 0.4 Mg Subl 0.4 Mg SL DIRECTED PRN 03/03/17 Reported ONE TABLET UNDER THE TONGUE NEEDED FOR CHEST PAIN, MAY REPEAT EVERY FIVE MINUTES FOR A TOTAL OF 3 DOSES OR CALL 911 IF NO RELIEF Tamsulosin (Tamsulosin HCl) 0.4 Mg Cap 0.4 Mg PO HS 03/03/17 Reported Atorvastatin (Atorvastatin Calcium) 80 Mg Tab 80 Mg PO HS 03/03/17 Reported Aspirin 81 Mg Chew 81 Mg CHEW DAILY 03/03/17 Reported Amiodarone (Amiodarone HCl) 200 Mg Tab 200 Mg PO DAILY 03/03/17 Reported Xarelto (Rivaroxaban) 20 Mg Tab 20 Mg PO DAILY 03/03/17 Reported Allergies: Coded Allergies: No Known Allergies (Verified Allergy, Unknown, 03/03/17) Family History Father had coronary artery disease. Social History No tobacco use. He used to drink moderately but stopped several years ago. Physical Exam Vital Signs Vital Signs Date Time Temp Pulse Resp B/P (MAP) Pulse Ox O2 Delivery O2 Flow Rate FiO2 03/04/17 12:00 97.7 84 18 148/73 (98) 95 03/04/17 08:00 97.0 40 18 139/65 (89) 95 03/04/17 04:00 96.6 77 20 123/60 (81) 94 03/03/17 22:45 110 03/03/17 22:34 97.3 110 20 137/84 (101) 96 03/03/17 22:28 111 18 138/82 (100) 96 03/03/17 21:17 111 18 128/79 (95) 96 Room Air 03/03/17 20:06 114 18 140/88 (105) 96 Room Air 03/03/17 19:42 97 03/03/17 19:35 112 18 97 Room Air 03/03/17 19:32 112 18 139/88 (105) 96 Room Air 03/03/17 19:22 98.9 114 20 144/90 (108) 94 Physical Exam GENERAL: Well-nourished, well-developed patient. SKIN: Warm and dry. HEAD: Left forehead laceration just above left eyebrow clean dry and intact with sutures. EYES: He has some mild left cyndi-orbital edema and ecchymosis. Pupils equal reactive to light. No scleral icterus. No injection or drainage. NECK: Supple, trachea midline. No JVD or lymphadenopathy. CARDIOVASCULAR: Regular rate and rhythm without murmurs, gallops, or rubs. RESPIRATORY: Breath sounds equal bilaterally. No accessory muscle use. GASTROINTESTINAL: Abdomen soft, non-tender, nondistended. EXTREMITIES: No cyanosis, or edema. NEUROLOGICAL: Awake, alert, and oriented x 3. Non-focal. Laboratory Laboratory Tests Test 03/03/17 19:34 03/04/17 01:30 03/04/17 06:16 03/04/17 12:18 White Blood Count 13.4 9.1 Red Blood Count 4.39 4.30 Hemoglobin 13.2 13.2 Hematocrit 39.3 39.1 Mean Corpuscular Volume 89.6 91.0 Mean Corpuscular Hemoglobin 30.1 30.6 Mean Corpuscular Hemoglobin Concent 33.5 33.6 Red Cell Distribution Width 13.9 14.7 Platelet Count 332 297 Mean Platelet Volume 7.4 7.6 Neutrophils (%) (Auto) 85.0 71.6 Lymphocytes (%) (Auto) 7.4 15.0 Monocytes (%) (Auto) 5.2 11.4 Eosinophils (%) (Auto) 0.2 1.6 Basophils (%) (Auto) 2.2 0.4 Neutrophils # (Auto) 11.4 6.6 Lymphocytes # (Auto) 1.0 1.4 Monocytes # (Auto) 0.7 1.0 Eosinophils # (Auto) 0.0 0.1 Basophils # (Auto) 0.3 0.0 CBC Comment AUTO DIFF DIFF FINAL Differential Comment AUTO DIFF CONFIRMED Platelet Estimate NORMAL Platelet Morphology Comment NORMAL Red Cell Morphology Comment NORMAL Prothrombin Time 11.6 Prothromb Time International Ratio 1.0 Activated Partial Thromboplast Time 29.9 Blood Urea Nitrogen 17 16 Creatinine 1.10 0.99 Random Glucose 199 128 Total Protein 7.5 Albumin 3.6 Calcium Level 8.6 9.0 Alkaline Phosphatase 100 Aspartate Amino Transf (AST/SGOT) 30 Alanine Aminotransferase (ALT/SGPT) 35 Total Bilirubin 0.4 Sodium Level 136 138 Potassium Level 4.2 4.2 Chloride Level 102 102 Carbon Dioxide Level 24.9 29.9 Anion Gap 9 6 Estimat Glomerular Filtration Rate 67 75 Troponin I 0.04 0.14 0.17 Result Diagram: 03/04/1761503/04/17615 Imaging Last Impressions Maxillofacial CT 03/03/171925 Signed Impressions: Service Date/Time: Friday, March 03, 2017 20:27 - CONCLUSION: 1. Left periorbital scalp soft tissue swelling and hematoma. 2. Right maxillary sinus air-fluid level. 3. No fractures are seen. Kwesi Balbuena MD Head CT 03/03/171925 Signed Impressions: Service Date/Time: Friday, March 03, 2017 20:27 - CONCLUSION: 1. Left frontal scalp hematoma and soft tissue swelling. Kwesi Balbuena MD Chest X-Ray 03/03/171925 Signed Impressions: Service Date/Time: Friday, March 03, 2017 19:36 - CONCLUSION: No acute disease. Kwesi Balbuena MD Carotid Artery Ultrasound 03/03/17 0000 Signed Impressions: Service Date/Time: Saturday, March 03, 2017 22:01 - CONCLUSION: 1. No evidence for hemodynamically significant stenosis. Moderate atherosclerosis is seen bilaterally. MD Ilya Levin VTE Risk Assessment Caprini VTE Risk Assessment: Mod/High Risk (score >= 2) Caprini Risk Assessment Model Point Value = 1 Point Value = 2 Point Value = 3 Point Value = 5 Age 41-60 Minor surgery BMI > 25 kg/m2 Swollen legs Varicose veins or History of unexplained or recurrent spontaneous Oral contraceptives or hormone replacement Sepsis (< 1 month) Serious lung disease, including pneumonia (< 1 month) Abnormal pulmonary function Acute myocardial infarction Congestive heart failure (< 1 month) History of inflammatory bowel disease Medical patient at bed rest Age 61-74 Arthroscopic surgery Major open surgery (> 45 min) Laparoscopic surgery (> 45 min) Malignancy Confined to bed (> 72 hours) Immobilizing plaster cast Central venous access Age >= 75 History of VTE Family history of VTE Factor V Leiden Prothrombin [id number] Lupus anticoagulant Anticardiolipin antibodies Elevated serum homocysteine Heparin-induced thrombocytopenia Other congenital or acquired thrombophilia Stroke (< 1 month) Elective arthroplasty Hip, pelvis, or leg fracture Acute spinal cord injury (< 1 month) Prophylaxis Regimen Total Risk Factor Score Risk Level Prophylaxis Regimen 0-1 Low Early ambulation 2 Moderate Order ONE of the following: *Sequential Compression Device (SCD) *Heparin 5000 units SQ BID 3-4 Higher Order ONE of the following medications: *Heparin 5000 units SQ TID *Enoxaparin/Lovenox 40 mg SQ daily (WT < 150 kg, CrCl > 30 mL/min) *Enoxaparin/Lovenox 30 mg SQ daily (WT < 150 kg, CrCl > 10-29 mL/min) *Enoxaparin/Lovenox 30 mg SQ BID (WT < 150 kg, CrCl > 30 mL/min) AND/OR *Sequential Compression Device (SCD) 5 or more Highest Order ONE of the following medications: *Heparin 5000 units SQ TID (Preferred with Epidurals) *Enoxaparin/Lovenox 40 mg SQ daily (WT < 150 kg, CrCl > 30 mL/min) *Enoxaparin/Lovenox 30 mg SQ daily (WT < 150 kg, CrCl > 10-29 mL/min) *Enoxaparin/Lovenox 30 mg SQ BID (WT < 150 kg, CrCl > 30 mL/min) AND *Sequential Compression Device (SCD) Assessment and Plan Assessment and Plan -Syncope, it sounds as if it was orthostatic in nature with presyncopal symptoms and the patient had been working outside in his yard. No orthostatic vital signs collected in the emergency department. EKG showed sinus rhythm. Doppler carotid negative for stenosis. 2-D echocardiogram pending. Patient is ambulating well. -Left forehead laceration. Sutures placed in the ED and need to be removed in 7 days. Patient will follow-up with his primary care physician to do this. -Minimal troponin elevation to 0.17. In the absence of chest pain or chest pressure. Patient status post CABG 1 year ago. I did recommend nuclear stress test however the patient declines stating he would like to follow-up with his estate and trust tax principal this month. Patient was encouraged to take aspirin daily. Encouraged to return to ER if he should develop chest pain. -Paroxysmal atrial fibrillation. In sinus rhythm throughout hospitalization. Patient is supposed to be taking Xarelto but stopped taking that. He states his estate and trust tax principal is aware. I did encourage patient to take 81 mg of aspirin a day at least and discuss further with his estate and trust tax principal anticoagulation. Continue amiodarone. Patient may be discharged home later today if his echocardiogram does not show significant valvular disease. Patient to follow-up with primary care physician in one week and with his estate and trust tax principal this month. Sutures to be removed in 7 days. Patient encouraged to stay hydrated and avoid strenuous activity. Patient was provided a note excusing him from work for the next week as he works as a parts sales counterperson and has significant bruising around the left eye. Ashley Brooks MD Mar 04, 2017 15:38
[2017-03-04 16:00] VITALS: BP 140/70; PULSE 76; RESP 18; TEMP 97.2; O2SAT 95
--- NOTE | 2017-03-04 17:34 | ECHRPT ---
Indication: syncope CONCLUSIONS The left ventricular systolic function is low normal with an estimated ejection fraction in the rang e of 50- 55%. Moderate thickening of the mitral valve leaflets. [id number] mitral valve regurgitation. The mitral valve area by Pressure Halftime Method is 2.2 cm, possible mild mitral stenosis. Aortic valve calcification noted. Trace aortic valve regurgitation. Aortic valve mean gradient is 10.7 mmHg. There is mild tricuspid valve regurgitation. BP: / HR: Rhythm: MEASUREMENTS (Male / Female) Normal Values Technical Quality:Technically difficult study 2D ECHO LV Diastolic Diameter PLAX 6.8 cm 4.2 - 5.9 / 3.9 - 5.3 cm LV Systolic Diameter PLAX 5.2 cm IVS Diastolic Thickness 0.8 cm 0.6 - 1.0 / 0.6 - 0.9 cm LVPW Diastolic Thickness 0.9 cm 0.6 - 1.0 / 0.6 - 0.9 cm LV Relative Wall Thickness 0.3 RV Internal Dim ED PLAX 2.4 cm LVOT Diameter 3.2 cm M-MODE Aortic Root Diameter MM 4.3 cm LA Systolic Diameter MM 4.2 cm LA Ao Ratio MM 1.0 AV Cusp Separation MM 1.0 cm DOPPLER AV Peak Velocity 231.7 cm/s AV Peak Gradient 21.5 mmHg AV Mean Gradient 10.7 mmHg AV Velocity Time Integral 45.0 cm LVOT Peak Velocity 114.0 cm/s LVOT Peak Gradient 5.2 mmHg LVOT Velocity Time Integral 21.3 cm AV Area Cont Eq vti 3.8 cm AV Area Cont Eq pk 4.0 cm MV Area PHT 2.2 cm Mitral E Point Velocity 120.0 cm/s Mitral A Point Velocity 94.8 cm/s Mitral E to A Ratio 1.3 LV E' Lateral Velocity 6.4 cm/s Mitral E to LV E' Lateral Ratio 18.7 LV E' Septal Velocity 4.2 cm/s Mitral E to LV E' Septal Ratio 28.6 TR Peak Velocity 222.0 cm/s TR Peak Gradient 19.7 mmHg Right Atrial Pressure 10.0 mmHg Pulmonary Artery Systolic Pressu 29.7 mmHg Right Ventricular Systolic Press 29.7 mmHg FINDINGS LEFT VENTRICLE The left ventricular systolic function is low normal with an estimated ejection fraction in the rang e of 50- 55%. Normal left ventricular size. RIGHT VENTRICLE Grossly normal LEFT ATRIUM The left atrial size is upper limits of normal. RIGHT ATRIUM The right atrial size is normal. ATRIAL SEPTUM Normal atrial septal thickness. AORTA The aortic root and proximal ascending aorta are not well visualized. MITRAL VALVE [id number] mitral valve regurgitation. Moderate thickening of the mitral valve leaflets. The mitral valve area by Pressure Halftime Method is _2.2_ cm, possible mild mitral stenosis AORTIC VALVE Trace aortic valve regurgitation. Aortic valve calcification noted Aortic valve mean gradient is 10.7 mmHg. TRICUSPID VALVE Structurally normal tricuspid valve. There is mild tricuspid valve regurgitation. The estimated pulmonary arterial pressure is 29.7 mmHg. PULMONARY VALVE The pulmonary valve is not well visualized. PERICARDIUM No pericardial effusion. Ulises Shields DO (Electronically Signed) Final Date:04 March 2017 17:33
[2017-03-04] MEDS ORDERED: ATORVASTATIN 80 MG TAB PO SCH (21:00)
[2017-03-04] MEDS ORDERED: TAMSULOSIN HCL 0.4 MG CAP PO SCH (21:00)
[2017-03-05] MEDS ORDERED: DOCUSATE SODIUM 100 MG CAP PO SCH (09:00)
[2017-03-05] MEDS ORDERED: LISINOPRIL 20 MG TAB PO SCH (09:00)
== END 2017-03-04 19:34 | disposition home or self-care (01) ==
LOC: PHED 19:17 → PHEDA 21:11 → PH3B 22:20
PROVIDERS: ADMIT Family Medicine; ATTEND Family Medicine
DX: R55 Syncope and collapse (principal); S01.81XA Laceration without foreign body of other part of head, initial encounter; I48.0 Paroxysmal atrial fibrillation; I10 Essential (primary) hypertension; F20.9 Schizophrenia, unspecified; E11.9 Type 2 diabetes mellitus without complications; I25.2 Old myocardial infarction; Z79.84 Long term (current) use of oral hypoglycemic drugs; S00.12XA Contusion of left eyelid and periocular area, initial encounter; R74.8 Abnormal levels of other serum enzymes; I25.10 Atherosclerotic heart disease of native coronary artery without angina pectoris; Z95.1 Presence of aortocoronary bypass graft; E78.5 Hyperlipidemia, unspecified; N40.0 Benign prostatic hyperplasia without lower urinary tract symptoms; S00.03XA Contusion of scalp, initial encounter; R94.31 Abnormal electrocardiogram [ECG] [EKG]
CPT/HCPCS: 12013; 70450; 70486; 71010; 80048; 80053; 82948; 84484; 85025; 85610; 85730; 93005; 93306; 93880; 97161; 99285; G0378; G8987; G8988

== ENCOUNTER 2017-03-07 15:51 | Observation (INO) | payer BC, OTHER ==
[~2017-03-07] VITALS: Ht 170.2 cm; Wt 87.0 kg
[~2017-03-07 15:51] MED LIST changes: +AMIO200T PO; +ASPI-516 CHEW; +ATOR80TA45 PO; -GLYB1TAB51; +KAOP240C PO; +LISI-515 PO; -LISI40TA; -METF-324; +METF850T PO; +NITR1SUB3 SL; +TAMS0.4C4 PO; +XARE20TA PO
[2017-03-07 16:33] VITALS: BP 157/78; PULSE 44; RESP 18; TEMP 98.2; O2SAT 99
[2017-03-07 16:53] VITALS: BP 138/69; PULSE 100; RESP 20; O2SAT 98
[2017-03-07 17:51] VITALS: BP_SYST 129; BP_SYST 159; BP_DIAS 100; BP_DIAS 89; RESP 20
[2017-03-07 17:56] LABS: AUTOMATED NEUTROPHIL # 6.2 TH/MM3 (1.8-7.7); BASOPHIL # 0.1 TH/MM3 (0-0.2); BASOPHIL % 0.7 % (0.0-2.0); EOSINOPHIL # 0.2 TH/MM3 (0-0.4); EOSINOPHIL % 1.8 % (0.0-4.0); HEMO FLAGS DIFF FINAL; LYMPH % 16.5 % (9.0-44.0); LYMPHOCYTE # 1.4 TH/MM3 (1.0-4.8); MEAN CORPUSCULAR HEMOGLOBIN 31.4 PG (27.0-34.0); MEAN CORPUSCULAR HGB CONC 33.8 % (32.0-36.0); MONO % 9.5 % (0.0-8.0); NEUT % 71.5 % (16.0-70.0); PLATELET COUNT 237 TH/MM3 (150-450); RED BLOOD COUNT 3.77 MIL/MM3 (4.50-5.90); RED CELL DISTRIBUTION WIDTH 14.9 % (11.6-17.2); WHITE BLOOD COUNT 8.7 TH/MM3 (4.0-11.0)
[2017-03-07 18:02] LABS: APTT (PATIENT) 27.9 SEC (24.3-30.1); PROTHROMBIN TIME - PATIENT 11.3 SEC (9.8-11.6)
[2017-03-07 18:11] LABS: BLOOD, URINE NEG (NEG); GLUCOSE,URINE NEG (NEG); HYALINE CAST, URINE 1 /lpf (RARE); KETONE, URINE NEG (NEG); NITRITE,URINE NEG (NEG); PH, URINE 5.5 (5.0-8.5); URINE COLOR LIGHT-YELLOW (YELLW/STRAW)
[2017-03-07 18:11] LABS: ANION GAP 9 MEQ/L (5-15); AST (GOT) 26 U/L (15-37); BICARBONATE 23.8 MEQ/L (21.0-32.0); BLOOD UREA NITROGEN 16 MG/DL (7-18); CHLORIDE 103 MEQ/L (98-107); GLOMERULAR FILTRATION RATE 83 ML/MIN (>89); MAGNESIUM 1.6 MG/DL (1.5-2.5); POTASSIUM 4.1 MEQ/L (3.5-5.1); SODIUM (NA) 136 MEQ/L (136-145)
[2017-03-07 18:12] LABS: ALT (GPT) 33 U/L (12-78)
[2017-03-07 18:13] LABS: COMMENT (UR) CULT NOT INDICATED; CULTURE IF INDICATED CULT NOT INDICATED
[2017-03-07 18:22] LABS: ALKALINE PHOSPHATASE 84 U/L (45-117); CREATINE KINASE 309 U/L (39-308); TOTAL BILIRUBIN ADULT 0.4 MG/DL (0.2-1.0)
--- NOTE | 2017-03-07 18:26 | RADRPT ---
EXAM DATE/TIME: 03/07/2017 17:53 [facility] COMPARISON: CHEST SINGLE AP, March 03, 2017, 19:36. INDICATIONS : Syncope. MEDICAL HISTORY : A-fib. SURGICAL HISTORY : CABG. ENCOUNTER: Initial ACUITY: 1 day PAIN SCORE: 0/10 LOCATION: Bilateral chest FINDINGS: A single view of the chest demonstrates the lungs to be symmetrically aerated without evidence of mas s, infiltrate or effusion. Mild cardiomegaly. No pulmonary vascular engorgement. Median sternotomy wi res. CONCLUSION: No acute disease. Jared Luke Jr., MD on March 07, 2017 at 18:24 Board Certified Radiologist. This report was verified electronically.
[2017-03-07 18:36] LABS: CKMB 12.4 NG/ML (0.5-3.6)
--- NOTE | 2017-03-07 19:28 | PD ---
HPI Chief Complaint: Syncope/Near-Syncope Time Seen by Provider: 17:10 Travel History International Travel<30 days: No Contact w/Intl Traveler<30days: No Traveled to known affect area: No History of Present Illness HPI 66-year-old male that presents to the ED for evaluation of abnormal results. Patient was sent here by [facility] from the [place] and they were concerned about his heart rate as well as abnormal troponin during his admission recently. Patient was admitted on March 04 for evaluation of syncope. Patient has syncopal episode. Patient was found to have orthostatic hypotension but of unclear source. He had a full workup and during his admission he was noted that his troponin started to get elevated but slightly. At the time stress test was recommended but patient declined. Patient denies any chest pain during that time and during today. [facility] get [facility] for [facility] workup. From what I can gather as patient is not really a good historian he had an EKG done that showed atrial fibrillation and RVR. Patient was also found to have orthostatic hypotension and was sent here for this. He himself denies anything other than having some pain where he has a bruise. Patient has bruises on his face that is chronic from the fall. He denies any new syncope. No new symptoms. He does state that he gets somewhat dizzy when he stands up. When asked if his been dehydrated or drinking or eating right he states that he has not eaten or drank anything today and that is what makes him feel little dizzy today. He again denies any chest pain or shortness of breath. Per patient the pain in his head is 2 out of 10. 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) Neurologic: No Psychiatric: Yes (SCHIZOPHRENIA) Reproductive: No Respiratory: Yes Integumentary: Yes (ULCER TO LEFT FOOT) Myocardial Infarction: Yes Schizophrenia: Yes (PARANOID) Sleep Apnea: No Thyroid Disease: No Past Surgical History Cardiac Surgery: Yes Coronary Artery Bypass Graft: Yes Coronary Stent: Yes Other Surgery: Yes (BILATERAL HALLUX APUTATION, CABG x1, STENT PLACED) Social History Alcohol Use: Yes (ocassionally) Tobacco Use: No Substance Use: No Allergies-Medications (Allergen,Severity, Reaction): Coded Allergies: No Known Allergies (Verified Allergy, Unknown, 03/03/17) Reported Meds & Prescriptions Reported Meds & Active Scripts Active Reported Metformin (Metformin HCl) 850 Mg Tab 850 Mg PO DAILY With a meal Lisinopril 20 Mg Tab 20 Mg PO DAILY Surfak (Docusate Calcium) 240 Mg Cap 240 Mg PO DAILY Nitroglycerin SL (Nitroglycerin) 0.4 Mg Subl 0.4 Mg SL DIRECTED PRN ONE TABLET UNDER THE TONGUE NEEDED FOR CHEST PAIN, MAY REPEAT EVERY FIVE MINUTES FOR A TOTAL OF 3 DOSES OR CALL 911 IF NO RELIEF Tamsulosin (Tamsulosin HCl) 0.4 Mg Cap 0.4 Mg PO HS Atorvastatin (Atorvastatin Calcium) 80 Mg Tab 80 Mg PO HS Aspirin 81 Mg Chew 81 Mg CHEW DAILY Amiodarone (Amiodarone HCl) 200 Mg Tab 200 Mg PO DAILY Review of Systems Except as stated in HPI: all other systems reviewed are Neg Physical Exam Narrative GENERAL: SKIN: Warm and dry. HEAD: Atraumatic. Normocephalic. EYES: Pupils equal and round. No scleral icterus. No injection or drainage. ENT: No nasal bleeding or discharge. Mucous membranes pink and moist. Tongue is midline. No uvula deviation. NECK: Trachea midline. No JVD. CARDIOVASCULAR: Regular rate and rhythm. No murmurs, S3, S4. RESPIRATORY: No accessory muscle use. Clear to auscultation. Breath sounds equal bilaterally. GASTROINTESTINAL: Abdomen soft, non-tender, nondistended. Hepatic and splenic margins not palpable. MUSCULOSKELETAL: Extremities without clubbing, cyanosis, or edema. No obvious deformities. Full range of motion of the upper and lower extremities bilaterally. 2+ pulses bilaterally. NEUROLOGICAL: Awake and alert. No obvious cranial nerve deficits. Motor grossly within normal limits. Five out of 5 muscle strength in the arms and legs. Normal speech. PSYCHIATRIC: Appropriate mood and affect; insight and judgment normal. Data Data Last Documented VS Vital Signs Date Time Temp Pulse Resp B/P (MAP) Pulse Ox O2 Delivery O2 Flow Rate FiO2 03/07/17 17:51 72 20 159/100 (119) 123 20 129/89 (102) 03/07/17 16:53 98 03/07/17 16:33 98.2 Orders Orders Electrocardiogram (03/07/17 17:17) Complete Blood Count With Diff (03/07/17 17:17) Comprehensive Metabolic Panel (03/07/17 17:17) Ckmb (Isoenzyme) Profile (03/07/17 17:17) Troponin I (03/07/17:17) Prothrombin Time / Inr (Pt) (03/07/17:17) Act Partial Throm Time (Ptt) (03/07/17 17:17) Lipase (03/07/17:17) Urinalysis - C+S If Indicated (03/07/17:17) Magnesium (Mg) (03/07/17:17) Thyroid Stimulating Hormone (03/07/17 17:17) Chest, Single Ap (03/07/17:17) Iv Access Insert/Monitor (03/07/17 17:17) Ecg Monitoring (03/07/17 17:17) Oximetry (03/07/17 17:17) Orthostatic Vital Signs (03/07/17 17:17) CKMB (03/07/17 17:30) CKMB% (03/07/17 17:30) Admit Order (Ed Use Only) (03/07/17 19:16) Vital Signs (Adult) Q4H (03/07/17 19:17) Diet Heart Healthy (03/08/17 Breakfast) Activity Oob With Assistance (03/07/17 19:17) Notify Dr: Other (03/07/17 19:17) Labs Laboratory Tests Test 03/07/17 17:30 03/07/17 17:40 White Blood Count 8.7 TH/MM3 Red Blood Count 3.77 MIL/MM3 Hemoglobin 11.8 GM/DL Hematocrit 35.0 % Mean Corpuscular Volume 93.0 FL Mean Corpuscular Hemoglobin 31.4 PG Mean Corpuscular Hemoglobin Concent 33.8 % Red Cell Distribution Width 14.9 % Platelet Count 237 TH/MM3 Mean Platelet Volume 7.5 FL Neutrophils (%) (Auto) 71.5 % Lymphocytes (%) (Auto) 16.5 % Monocytes (%) (Auto) 9.5 % Eosinophils (%) (Auto) 1.8 % Basophils (%) (Auto) 0.7 % Neutrophils # (Auto) 6.2 TH/MM3 Lymphocytes # (Auto) 1.4 TH/MM3 Monocytes # (Auto) 0.8 TH/MM3 Eosinophils # (Auto) 0.2 TH/MM3 Basophils # (Auto) 0.1 TH/MM3 CBC Comment DIFF FINAL Differential Comment Prothrombin Time 11.3 SEC Prothromb Time International Ratio 1.0 RATIO Activated Partial Thromboplast Time 27.9 SEC Blood Urea Nitrogen 16 MG/DL Creatinine 0.91 MG/DL Random Glucose 122 MG/DL Total Protein 6.5 GM/DL Albumin 3.2 GM/DL Calcium Level 8.7 MG/DL Magnesium Level 1.6 MG/DL Alkaline Phosphatase 84 U/L Aspartate Amino Transf (AST/SGOT) 26 U/L Alanine Aminotransferase (ALT/SGPT) 33 U/L Total Bilirubin 0.4 MG/DL Sodium Level 136 MEQ/L Potassium Level 4.1 MEQ/L Chloride Level 103 MEQ/L Carbon Dioxide Level 23.8 MEQ/L Anion Gap 9 MEQ/L Estimat Glomerular Filtration Rate 83 ML/MIN Total Creatine Kinase 309 U/L Creatine Kinase MB 12.4 NG/ML Creatine Kinase MB % 4.0 % Troponin I 0.05 NG/ML Lipase 135 U/L Thyroid Stimulating Hormone 3rd Gen 1.300 uIU/ML Urine Color LIGHT-YELLOW Urine Turbidity CLEAR Urine pH 5.5 Urine Specific [place] 1.007 Urine Protein 30 mg/dL Urine Glucose (UA) NEG mg/dL Urine Ketones NEG mg/dL Urine Occult Blood NEG Urine Nitrite NEG Urine Bilirubin NEG Urine Urobilinogen LESS THAN 2.0 MG/DL Urine Leukocyte Esterase NEG Urine RBC LESS THAN 1 /hpf Urine WBC 1 /hpf Urine Hyaline Casts 1 /lpf Microscopic Urinalysis Comment CULT NOT INDICATED MDM Medical Decision Making Medical Screen Exam Complete: Yes Emergency Medical Condition: Yes Medical Record Reviewed: Yes Interpretation(s) CK elevated Troponin negative. EKG showed atrial flutter with tachycardia with a heart rate 88. Read by me and attending. CBC & BMP Diagram 03/07/17 17:30 Total Protein 6.5 #, Albumin 3.2 L, Calcium Level 8.7, Magnesium Level 1.6, Alkaline Phosphatase 84, Aspartate Amino Transf (AST/SGOT) 26, Alanine Aminotransferase (ALT/SGPT) 33, Total Bilirubin 0.4 Last Impressions Chest X-Ray 03/07/17 [id number] Signed Impressions: Service Date/Time: Tuesday, March 07, 2017 17:53 - CONCLUSION: No acute disease. Jared Luke Jr., MD Differential Diagnosis Syncope versus elevated troponin versus cardiac syncope versus CHF versus atrial fibrillation versus orthostatic hypotension versus dehydration versus head injury Narrative Course 66-year-old male that presents to the ED for evaluation of abnormal results and syncope. Patient was properly examined and was found to have signs and symptoms of unclear etiology. Labs and imaging were ordered. Orthostatics show positive drop of 20 points. Symptomatic. Patient also becomes very tachycardic whenever he moves. He does have a history of atrial flutter and atrial fibrillation and takes medications for this. Patient states feeling somewhat dizzy when he stands and [facility] I did review the patient's medical records and he had positive troponins and the recommended a stress test at the time but he did not want it done at the time. He denies any other medical issues. No falls or injuries. Case was discussed with my attending Dr. Barba who recommended admission for. This was discussed with Dr. Mclaughlin from [facility] who agrees to admission. Diagnosis Primary Impression: Orthostatic hypotension Additional Impressions: Syncope Qualified Codes: R55 - Syncope and collapse Atrial fibrillation Qualified Codes: I48.2 - Chronic atrial fibrillation Admitting Information Admitting Physician Requests: Keith Hwang Mar 07, 2017 19:28
[2017-03-07] MEDS ORDERED: SODIUM CHLORIDE 0.9% FLUSH 10 ML FLUSH IV FLUSH PRN (20:00)
--- NOTE | 2017-03-07 20:08 | HHI.HP ---
HPI Service [facility] Primary Care Physician [facility] Admission Diagnosis recent syncope, orthostatic hypotension, atrial fib Diagnoses: Chief Complaint: recent syncope, afib Travel History International Travel<30 Days: No Contact w/Intl Traveler <30 Da: No Traveled to Known Affected Are: No History of Present Illness 66 y/o male with a history of afib (that he states resolved, not on any blood thinners), HTN, HLD, DM, BPH and TN (Cabg one year ago) was sent to the ED from the [place] for evaluation of irregular HR. He states he went to the [place] today to get a note for work and they were concerned about his HR. He was recently admitted to [facility] on 03/03 after having a syncopal episode. At this time he was told he had elevated troponin's but declined further workup. He states he had afib a year ago before his cabg and he states it resolved on his own. He was never placed on blood thinners. No cardiac cath or stress test since his cabg 1 year ago. He denies any chest pain, sob, fever, chills, nausea or vomiting. In the ED patient was found to have positive orthostatics. He does complain of some dizziness when standing up, and feels his equal Librium is off. Etcher Hand is in [facility] Review of Systems Except as stated in HPI: all other systems reviewed are Neg Past Family Social History Past Medical History Paroxysmal atrial fibrillation Hypertension Diabetes type 2 Coronary artery disease status post CABG 1 year ago Myocardial infarction Hyperlipidemia BPH Past Surgical History christ great toe amputation Cabg 2016 Reported Medications Reported Meds & Active Scripts Active Reported Metformin (Metformin HCl) 850 Mg Tab 850 Mg PO DAILY With a meal Lisinopril 20 Mg Tab 20 Mg PO DAILY Surfak (Docusate Calcium) 240 Mg Cap 240 Mg PO DAILY Nitroglycerin SL (Nitroglycerin) 0.4 Mg Subl 0.4 Mg SL DIRECTED PRN ONE TABLET UNDER THE TONGUE NEEDED FOR CHEST PAIN, MAY REPEAT EVERY FIVE MINUTES FOR A TOTAL OF 3 DOSES OR CALL 911 IF NO RELIEF Tamsulosin (Tamsulosin HCl) 0.4 Mg Cap 0.4 Mg PO HS Atorvastatin (Atorvastatin Calcium) 80 Mg Tab 80 Mg PO HS Aspirin 81 Mg Chew 81 Mg CHEW DAILY Amiodarone (Amiodarone HCl) 200 Mg Tab 200 Mg PO DAILY Allergies: Coded Allergies: No Known Allergies (Verified Allergy, Unknown, 03/03/17) Active Ordered Medications Current Medications Medications (Trade) Dose Ordered Sig/Ela Route Start Time Stop Time Status Last Admin (NS Flush) 2 ml UNSCH PRN IV FLUSH 03/07/17 20:00 UNV (NS Flush) 2 ml BID IV FLUSH 03/07/17 21:00 UNV Family History Dad: CAD Social History Tobacco use: Denies, quit many years ago Alcohol use: Socially Illicit drug use: Denies Physical Exam Vital Signs Vital Signs Date Time Temp Pulse Resp B/P (MAP) Pulse Ox O2 Delivery O2 Flow Rate FiO2 03/07/17 17:51 72 20 159/100 (119) 123 20 129/89 (102) 03/07/17 16:53 100 20 138/69 (92) 98 03/07/17 16:33 98.2 44 18 157/78 (104) 99 Physical Exam GENERAL: This is a well-nourished, well-developed patient, in no apparent distress. SKIN: Left eye chronic abrasion from fall one week ago, ecchymosis to bilateral eyes and jaw extending to neck HEAD: Atraumatic. Normocephalic. No temporal or scalp tenderness. EYES: Pupils equal round and reactive. ENT: Nose without bleeding, purulent drainage or septal hematoma. Airway patent. NECK: Trachea midline. No JVD or lymphadenopathy. Supple, nontender, no meningeal signs. CARDIOVASCULAR: Regular rate and irregular rhythm without murmurs, gallops, or rubs. RESPIRATORY: Diminished breath sounds bilaterally. No wheezes, rales, or rhonchi. GASTROINTESTINAL: Abdomen soft, non-tender, nondistended. BS x 4 MUSCULOSKELETAL: Extremities without clubbing, cyanosis, or edema. No joint tenderness, effusion, or edema noted. No calf tenderness. NEUROLOGICAL: Awake and alert. Motor and sensory grossly within normal limits. Normal speech. Laboratory Laboratory Tests Test 03/07/17 17:30 03/07/17 17:40 White Blood Count 8.7 Red Blood Count 3.77 Hemoglobin 11.8 Hematocrit 35.0 Mean Corpuscular Volume 93.0 Mean Corpuscular Hemoglobin 31.4 Mean Corpuscular Hemoglobin Concent 33.8 Red Cell Distribution Width 14.9 Platelet Count 237 Mean Platelet Volume 7.5 Neutrophils (%) (Auto) 71.5 Lymphocytes (%) (Auto) 16.5 Monocytes (%) (Auto) 9.5 Eosinophils (%) (Auto) 1.8 Basophils (%) (Auto) 0.7 Neutrophils # (Auto) 6.2 Lymphocytes # (Auto) 1.4 Monocytes # (Auto) 0.8 Eosinophils # (Auto) 0.2 Basophils # (Auto) 0.1 CBC Comment DIFF FINAL Differential Comment Prothrombin Time 11.3 Prothromb Time International Ratio 1.0 Activated Partial Thromboplast Time 27.9 Blood Urea Nitrogen 16 Creatinine 0.91 Random Glucose 122 Total Protein 6.5 Albumin 3.2 Calcium Level 8.7 Magnesium Level 1.6 Alkaline Phosphatase 84 Aspartate Amino Transf (AST/SGOT) 26 Alanine Aminotransferase (ALT/SGPT) 33 Total Bilirubin 0.4 Sodium Level 136 Potassium Level 4.1 Chloride Level 103 Carbon Dioxide Level 23.8 Anion Gap 9 Estimat Glomerular Filtration Rate 83 Total Creatine Kinase 309 Creatine Kinase MB 12.4 Creatine Kinase MB % 4.0 Troponin I 0.05 Lipase 135 Thyroid Stimulating Hormone 3rd Gen 1.300 Urine Color LIGHT-YELLOW Urine Turbidity CLEAR Urine pH 5.5 Urine Specific [place] 1.007 Urine Protein 30 Urine Glucose (UA) NEG Urine Ketones NEG Urine Occult Blood NEG Urine Nitrite NEG Urine Bilirubin NEG Urine Urobilinogen LESS THAN 2.0 Urine Leukocyte Esterase NEG Urine RBC LESS THAN 1 Urine WBC 1 Urine Hyaline Casts 1 Microscopic Urinalysis Comment CULT NOT INDICATED Result Diagram: 03/07/17172903/07/17 173 Imaging Last Impressions Chest X-Ray 03/07/177 Signed Impressions: Service Date/Time: Tuesday, March 07, 2017 17:53 - CONCLUSION: No acute disease. MD Ilya Segura Jr. VTE Risk Assessment Caprini VTE Risk Assessment: Mod/High Risk (score >= 2) Caprini Risk Assessment Model Point Value = 1 Point Value = 2 Point Value = 3 Point Value = 5 Age 41-60 Minor surgery BMI > 25 kg/m2 Swollen legs Varicose veins or History of unexplained or recurrent spontaneous Oral contraceptives or hormone replacement Sepsis (< 1 month) Serious lung disease, including pneumonia (< 1 month) Abnormal pulmonary function Acute myocardial infarction Congestive heart failure (< 1 month) History of inflammatory bowel disease Medical patient at bed rest Age 61-74 Arthroscopic surgery Major open surgery (> 45 min) Laparoscopic surgery (> 45 min) Malignancy Confined to bed (> 72 hours) Immobilizing plaster cast Central venous access Age >= 75 History of VTE Family history of VTE Factor V Leiden Prothrombin [id number] Lupus anticoagulant Anticardiolipin antibodies Elevated serum homocysteine Heparin-induced thrombocytopenia Other congenital or acquired thrombophilia Stroke (< 1 month) Elective arthroplasty Hip, pelvis, or leg fracture Acute spinal cord injury (< 1 month) Prophylaxis Regimen Total Risk Factor Score Risk Level Prophylaxis Regimen 0-1 Low Early ambulation 2 Moderate Order ONE of the following: *Sequential Compression Device (SCD) *Heparin 5000 units SQ BID 3-4 Higher Order ONE of the following medications: *Heparin 5000 units SQ TID *Enoxaparin/Lovenox 40 mg SQ daily (WT < 150 kg, CrCl > 30 mL/min) *Enoxaparin/Lovenox 30 mg SQ daily (WT < 150 kg, CrCl > 10-29 mL/min) *Enoxaparin/Lovenox 30 mg SQ BID (WT < 150 kg, CrCl > 30 mL/min) AND/OR *Sequential Compression Device (SCD) 5 or more Highest Order ONE of the following medications: *Heparin 5000 units SQ TID (Preferred with Epidurals) *Enoxaparin/Lovenox 40 mg SQ daily (WT < 150 kg, CrCl > 30 mL/min) *Enoxaparin/Lovenox 30 mg SQ daily (WT < 150 kg, CrCl > 10-29 mL/min) *Enoxaparin/Lovenox 30 mg SQ BID (WT < 150 kg, CrCl > 30 mL/min) AND *Sequential Compression Device (SCD) Assessment and Plan Problem List: (1) Elevated troponin I level ICD Code: R74.8 - Abnormal levels of other serum enzymes (2) Orthostatic hypotension ICD Code: I95.1 - Orthostatic hypotension Status: Acute (3) Atrial fibrillation ICD Code: I48.91 - Unspecified atrial fibrillation Status: Acute (4) Forehead laceration ICD Code: S01.81XA - Laceration without foreign body of other part of head, initial encounter Assessment and Plan 66 y/o male with a history of afib (that he states resolved, not on any blood thinners), HTN, HLD, DM, BPH and [place] (Cabg one year ago) [facility]. Afib RVR EKG reviewed and shows afib rvr -Lovenox 85 mg SQ@12H ordered -Consult cardiology for recommendations -Monitor telemetry -Resume home medications when verified Orthostatic hypotension -PT eval and treat -Juan Manuel Hose ordered -Monitor orthostatic blood pressures Q shift Elevated troponin, troponin .05 -Serial troponin and EKG -Await cardiology recommendations Forehead laceration, chronic from fall 5 days ago -Ultram for pain >5, Tylenol pain 1-5 -ICE as needed DVT prophylaxis: SCDs Discussed Condition With Patient and RN Problem Qualifiers (1) Atrial fibrillation: Qualified Codes: I48.2 - Chronic atrial fibrillation Martha Jara Mar 07, 2017 20:08
[2017-03-07 20:52] VITALS: BP 138/94; PULSE 94; RESP 19; TEMP 98.3; O2SAT 99
[2017-03-07] MEDS ORDERED: ACETAMINOPHEN 325 MG TAB PO PRN (21:00)
[2017-03-07] MEDS ORDERED: ENOXAPARIN SODIUM 80 MG/0.8 ML SYRINGE SQ SCH (21:00)
[2017-03-07] MEDS: traMADol HCL 50 MG TAB PO PRN (21:20)
[2017-03-07] MEDS: SODIUM CHLORIDE 0.9% FLUSH 10 ML FLUSH IV FLUSH SCH (21:20)
[2017-03-07 23:25] VITALS: PULSE 55
[2017-03-08] VITALS (8 sets, daily range): BP systolic 129–177; BP diastolic 65–84; PULSE 62–88; RESP 18–24; TEMP 97.5–98.5; O2SAT 96–99
--- NOTE | 2017-03-08 05:19 | EKG ---
Date Performed: 03/07/2017 Time Performed: 17:38:09 PTAGE: 66 years EKG: ATRIAL FLUTTER/TACHYCARDIA INFERIOR MYOCARDIAL INFARCTION Nonspecific T wave changes No sig nificant change from prior electrocardiogram. NO PREVIOUS TRACING DOCTOR: Devyn Currie Interpretating Date/Time 03/08/2017 05:17:41
[2017-03-08] MEDS: traMADol HCL 50 MG TAB PO PRN ×2 (05:20→21:36)
[2017-03-08 05:31] LABS: AUTOMATED NEUTROPHIL # 4.5 TH/MM3 (1.8-7.7); BASOPHIL # 0.1 TH/MM3 (0-0.2); BASOPHIL % 0.8 % (0.0-2.0); EOSINOPHIL # 0.3 TH/MM3 (0-0.4); EOSINOPHIL % 3.8 % (0.0-4.0); HEMATOCRIT 34.3 % (39.0-51.0); HEMO FLAGS DIFF FINAL; LYMPH % 22.2 % (9.0-44.0); LYMPHOCYTE # 1.6 TH/MM3 (1.0-4.8); MEAN CELL VOLUME 92.1 FL (80.0-100.0); MEAN CORPUSCULAR HGB CONC 33.6 % (32.0-36.0); MONO % 11.2 % (0.0-8.0); PLATELET COUNT 237 TH/MM3 (150-450); RED BLOOD COUNT 3.72 MIL/MM3 (4.50-5.90); WHITE BLOOD COUNT 7.3 TH/MM3 (4.0-11.0)
[2017-03-08 06:02] LABS: BICARBONATE 28.5 MEQ/L (21.0-32.0); POTASSIUM 4.1 MEQ/L (3.5-5.1)
--- NOTE | 2017-03-08 07:31 | EKG ---
Date Performed: 03/08/2017 Time Performed: 06:09:18 PTAGE: 66 years EKG: ATRIAL FLUTTER/TACHYCARDIA INTRAVENTRICULAR CONDUCTION DELAY INFERIOR MYOCARDIAL INFARCTION ABNORMAL ECG No significant change from prior electrocardiogram. PREVIOUS TRACING : 03/07/2017 17.38 DOCTOR: Devyn Currie Interpretating Date/Time 03/08/2017 07:30:31
[2017-03-08] MEDS: INSULIN ASPART SUPPLEMENTAL SCALE SQ SCH ×3 (08:00→21:37)
[2017-03-08] MEDS ORDERED: MAGNESIUM HYDROXIDE SUSP 30 ML CUP PO PRN (08:15)
[2017-03-08] MEDS ORDERED: ACETAMINOPHEN 325 MG TAB PO PRN ×2 (08:15)
[2017-03-08] MEDS ORDERED: BISACODYL 10 MG SUPP RECTAL PRN (08:15)
[2017-03-08] MEDS ORDERED: LACTULOSE SYRUP 20 GM/30 ML CUP PO PRN (08:15)
[2017-03-08] MEDS ORDERED: ONDANSETRON HCL 4 MG/2 ML VIAL IVP PRN (08:15)
[2017-03-08] MEDS ORDERED: NALOXONE HCL 0.4 MG/ML AMP IV PUSH PRN (08:15)
[2017-03-08] MEDS ORDERED: NITROGLYCERIN 0.4 MG SL 25 TABS/BTL SL PRN (08:15)
[2017-03-08] MEDS ORDERED: SENNOSIDES 8.6 MG TAB PO PRN (08:15)
[2017-03-08] MEDS ORDERED: GLUCAGON 1 MG/ML VIAL OTHER PRN (08:30)
[2017-03-08] MEDS ORDERED: DEXTROSE 50% IN WATER 50 ML VIAL(D50) IV PUSH PRN (08:30)
[2017-03-08] MEDS: metFORMIN HCL 850 MG TAB PO SCH (09:00)
[2017-03-08] MEDS: DOCUSATE SODIUM 50 MG/SENNA 8.6 MG TAB PO SCH ×2 (10:41→21:35)
[2017-03-08] MEDS: ASPIRIN 81 MG CHEW TAB CHEW SCH (10:43)
[2017-03-08] MEDS: SODIUM CHLORIDE 0.9% FLUSH 10 ML FLUSH IV FLUSH SCH ×2 (10:43→21:00)
[2017-03-08] MEDS: AMIODARONE 200 MG TAB PO SCH (10:44)
[2017-03-08] MEDS ORDERED: REGADENOSON INJ 0.4 MG/5 ML SYR ONE ×2 (13:26→13:48)
--- NOTE | 2017-03-08 13:34 | MB ---
cc: DARIUS TRAN DATE OF CONSULTATION 03/08/2017 REASON FOR CONSULTATION This is a 66 year-old white male with a history of atrial fibrillation, hypertension, dyslipidemia, diabetes mellitus and myocardial infarction who was seen at the [place] and was found to have irregular heart rate. He had a bypass one year ago. He recently was seen in the [place] emergency room after he had an episode of syncope. He has mildly elevated troponin, but did not want any further evaluation. He had atrial fibrillation after his bypass a year ago with which resolved and has not recurred until this time. The patient, has not had chest pain or shortness of breath. He has mild dizziness. He sees a forecast analyst in [facility]. PAST MEDICAL HISTORY Positive for: 1. Paroxysmal atrial fibrillation 2. Coronary artery disease 3. History of bypass one year ago after his myocardial function. 4. Dyslipidemia 5. BPH 6. Hypertension 7. Diabetes mellitus type 2 8. History of bilateral great toe amputation. MEDICATIONS Include: 1. Metformin 2. Lisinopril 3. Surfak 4. Nitroglycerin p.r.n. 5. Tamsulosin 6. Atorvastatin 7. Aspirin. 8. Amiodarone 200 mg a day ALLERGIES None SOCIAL HISTORY The patient quit smoking many years ago. He drinks alcohol socially. FAMILY HISTORY Positive for heart disease in his father. REVIEW OF SYSTEMS Otherwise negative. PHYSICAL EXAMINATION Blood pressure was 150/74, pulse 88, and irregular. HEENT: Negative. NECK: 2+ carotid upstrokes. No bruits. LUNGS: Clear. HEART: Irregularly irregular with no murmur, gallop or rub. ABDOMEN: Soft. No bruits. EXTREMITIES: Without edema. 2+ distal pulses. NEUROLOGIC: Grossly nonfocal. EKG was reviewed and showed atrial flutter with variable block, left axis and inferior Q-waves and mild interventricular conduction delay, nonspecific ST-T changes. LABORATORY DATA Hemoglobin of 11.5. Potassium 4.1, creatinine 0.9, CK 309, 266 and 212, troponin 0.05, 0.05, 0.06 and 0.06. TSH 1.3. ASSESSMENT 1. Paroxysmal atrial flutter with variable block. 2. Coronary disease, h/o coronary artery bypass 3. Hypertension 4. Diabetes mellitus 5. Dyslipidemia DISPOSITION Mr. Blackwell recently suffered head trauma. He will need to be started on anticoagulation when it is safe from the standpoint of the healing of his facial trauma. He will then be scheduled for cardioversion after at least three weeks of therapeutic anticoagulation. We will obtain echocardiogram, and adenosine myocardial perfusion study today to evaluate his left ventricular function and also to evaluate for ischemia. I will follow him for cardiology during this hospitalization. He will follow up with his forecast analyst in [facility] after discharge. MD JOSÉ Wilson/TIM /1:04 PM /1:28 PM MTDEnrike
--- NOTE | 2017-03-08 13:52 | HHI.PR ---
Subjective Remarks Follow-up A. fib. Denies chest pain and palpitations. Objective Vitals Vital Signs Date Time Temp Pulse Resp B/P (MAP) Pulse Ox O2 Delivery O2 Flow Rate FiO2 03/08/17 11:47 97.5 88 24 158/74 (102) 99 03/08/17 11:42 20 03/08/17 08:23 82 24 177/84 (115) 99 141/79 (99) 152/76 (101) 03/08/17 08:22 97.6 83 24 177/84 (115) 98 03/08/17 05:01 98.5 70 18 132/77 (95) 97 03/08/17 00:19 98.4 74 18 142/65 (90) 97 03/07/17 23:25 55 03/07/17 21:04 03/07/17 20:52 98.3 94 19 138/94 (109) 99 03/07/17 17:51 72 20 159/100 (119) 123 20 129/89 (102) 03/07/17 16:53 100 20 138/69 (92) 98 03/07/17 16:33 98.2 44 18 157/78 (104) 99 Result Diagram: 03/08/1712 03/08/17 0512 Imaging Last Impressions Chest X-Ray 03/07/171716 Signed Impressions: Service Date/Time: Tuesday, March 07, 2017 17:53 - CONCLUSION: No acute disease. Jared Luke Jr., MD Objective Remarks GENERAL: This is a well-nourished, well-developed patient, in no apparent distress. SKIN: Left eye chronic abrasion from fall one week ago, ecchymosis to bilateral eyes and jaw extending to neck CARDIOVASCULAR: Regular rate and irregular rhythm without murmurs, gallops, or rubs. RESPIRATORY: Diminished breath sounds bilaterally. No wheezes, rales, or rhonchi. GASTROINTESTINAL: Abdomen soft, non-tender, nondistended. BS x 4 MUSCULOSKELETAL: Extremities without clubbing, cyanosis, or edema. No joint tenderness, effusion, or edema noted. No calf tenderness. NEUROLOGICAL: Awake and alert. Motor and sensory grossly within normal limits. Normal speech. A/P Problem List: (1) Elevated troponin I level ICD Code: R74.8 - Abnormal levels of other serum enzymes (2) Orthostatic hypotension ICD Code: I95.1 - Orthostatic hypotension Status: Acute (3) Atrial fibrillation ICD Code: I48.91 - Unspecified atrial fibrillation Status: Acute (4) Forehead laceration ICD Code: S01.81XA - Laceration without foreign body of other part of head, initial encounter Assessment and Plan 66 y/o male with a history of afib (that he states resolved, not on any blood thinners), HTN, HLD, DM, BPH and [place] (Cabg one year ago) [facility]. Afib EKG reviewed and shows afib rvr -Cardiology recommended echo and stress test. To start anticoagulation when facial trauma heals up -Monitor telemetry -Resume home medications when verified amiodarone and aspirin. Hold beta jolly secondary to episodic bradycardia Orthostatic hypotension -PT eval and treat -Juan Manuel Hose ordered -Monitor orthostatic blood pressures Q shift. Hold BP medicines for now Elevated troponin, troponin .05 -As above Forehead laceration, chronic from fall 5 days ago -Ultram for pain >5, Tylenol pain 1-5 -ICE as needed DVT prophylaxis: SCDs hold pharmacological prophylaxis secondary to recent facial trauma Problem Qualifiers (1) Atrial fibrillation: Qualified Codes: I48.2 - Chronic atrial fibrillation Raudel Martinez MD Mar 08, 2017 13:52
--- NOTE | 2017-03-08 16:24 | RADRPT ---
EXAM DATE/TIME: 03/08/2017 13:31 [facility] COMPARISON: CHEST SINGLE AP, March 07, 2017, 17:53. INDICATIONS : Chest pain with elevated troponin. Atrial fibrillation. Coronary artery bypass graft. DOSE: 26.5 mCi Tc99m Myoview at stress. 8.7 mCi Tc99m Myoview at rest. 0.4 mg Lexiscan STRESS SYMPTOMS: Patient denies symptoms. EJECTION FRACTION: 30% MEDICAL HISTORY : Hypertension. Diabetes mellitus type 2. Myocardial infarction. SURGICAL HISTORY : CABG Toe amputation. ENCOUNTER: Initial ACUITY: 1 day PAIN SCALE: 0/10 LOCATION: Bilateral chest TECHNIQUE: The patient underwent pharmacologic stress with infusion of prescribed dose. Continuous ECG tracing was monitored during stress. Gated SPECT imaging was performed after stress and conventional SPECT i maging was performed at rest. The examination was performed on a SPECT/CT scanner, both attenuation and non-corrected datasets were reviewed. FINDINGS: DISTRIBUTION: The maximum perfused segment at stress is in the inferolateral wall. PERFUSION STUDY: The pattern of perfusion at stress is within normal limits. No fixed or reversible perfusion defect i s identified. GATED STUDY: There is global hypokinesia with akinesia of the septum. CONCLUSION: 1. No left ventricle perfusion abnormality is identified to suggest stress-induced ischemia. 2. However, there is abnormal wall motion with global hypokinesia and akinesia of the septum. Left ve ntricle ejection fraction is reduced at 30%. RISK CATEGORY: High (>3% Annual Mortality Rate) Beck Naik MD on March 08, 2017 at 16:19 Board Certified Radiologist. This report was verified electronically.
--- NOTE | 2017-03-08 18:25 | TR ---
Date Performed: 03/08/2017 Time Performed: 13:49:34 DOCTOR: Judie Barksdale DRUG LIST: CLINICAL HISTORY: AFIB REASON FOR TEST: REASON FOR ENDING: OBSERVATION: CONCLUSION: Lexiscan stress test was performed under standard four minute protocol. Radionuclid e was injected one minute prior to ending the test. No electrocardiographic abormalities were present to suggest ischemia. Nuclear imaging and interpretation are pending. COMMENTS:
[2017-03-08] MEDS ORDERED: ATORVASTATIN 80 MG TAB PO SCH (21:00)
[2017-03-08] MEDS: CARVEDILOL 6.25 MG TAB PO SCH (21:35)
[2017-03-08] MEDS: SODIUM CHLOR 0.9% 1000 ML INJ 1,000 ML IV SCH (21:38)
[2017-03-08] MEDS: LISINOPRIL 10 MG TAB PO SCH (21:40)
[2017-03-09 00:05] VITALS: PULSE 62
[2017-03-09 00:40] VITALS: BP 137/68; PULSE 61; RESP 18; TEMP 97.6; O2SAT 97
[2017-03-09 03:54] VITALS: BP 146/80; PULSE 61; RESP 16; TEMP 97.5; O2SAT 96
[2017-03-09] MEDS: SODIUM CHLOR 0.9% 1000 ML INJ 1,000 ML IV SCH ×2 (05:09→05:10)
[2017-03-09] MEDS: AMIODARONE 200 MG TAB PO SCH (07:53)
[2017-03-09] MEDS: SODIUM CHLORIDE 0.9% FLUSH 10 ML FLUSH IV FLUSH SCH (07:53)
[2017-03-09] MEDS: DOCUSATE SODIUM 50 MG/SENNA 8.6 MG TAB PO SCH (07:53)
[2017-03-09] MEDS: ASPIRIN 81 MG CHEW TAB CHEW SCH (07:54)
[2017-03-09] MEDS: traMADol HCL 50 MG TAB PO PRN (07:54)
[2017-03-09] MEDS: LISINOPRIL 10 MG TAB PO SCH (07:54)
[2017-03-09] MEDS: metFORMIN HCL 850 MG TAB PO SCH (07:54)
[2017-03-09] MEDS: CARVEDILOL 6.25 MG TAB PO SCH (07:54)
[2017-03-09] MEDS: INSULIN ASPART SUPPLEMENTAL SCALE SQ SCH ×2 (08:00→12:00)
[2017-03-09 08:33] VITALS: BP 141/80; PULSE 62; RESP 20; TEMP 97.6; O2SAT 96
[2017-03-09] MEDS ORDERED: LISI10TA3 PO (09:17)
[2017-03-09] MEDS ORDERED: CARV6.25 PO (09:17)
--- NOTE | 2017-03-09 09:19 | HHI.DCPOC ---
Discharge Care Plan Diagnosis: (1) Atrial fibrillation (2) Orthostatic hypotension Goals to Promote Your Health * To prevent worsening of your condition and complications * To maintain your health at the optimal level Directions to Meet Your Goals Take your medications as prescribed Follow your dietary instruction Follow activity as directed Keep your appointments as scheduled Take your immunizations and boosters as scheduled If your symptoms worsen call your PCP, if no PCP go to Urgent Care Center or Emergency Room Smoking is Dangerous to Your Health. Avoid second hand smoke Call the 24-hour hour crisis hotline for domestic abuse at Marylou Antonio PA-C Mar 09, 2017 9:19 am
[2017-03-09 10:23] VITALS: BP_SYST 124; BP_SYST 146; BP_DIAS 64; BP_DIAS 75; BP_DIAS 76; PULSE 62; RESP 22; TEMP 98.1; O2SAT 94
--- NOTE | 2017-03-09 11:51 | HHI.DS ---
Discharge Summary Admission Date Mar 07, 2017 at 19:18 Discharge Date: Mar 09, 2017 Admitting Diagnosis recent syncope, orthostatic hypotension, atrial fib (1) Elevated troponin I level ICD Code: R74.8 - Abnormal levels of other serum enzymes Diagnosis: Principal (2) Orthostatic hypotension ICD Code: I95.1 - Orthostatic hypotension Diagnosis: Principal Status: Acute (3) Atrial fibrillation ICD Code: I48.91 - Unspecified atrial fibrillation Diagnosis: Principal Status: Acute (4) Forehead laceration ICD Code: S01.81XA - Laceration without foreign body of other part of head, initial encounter Diagnosis: Secondary Procedures none Brief History - From Admission 66 y/o male with a history of afib (that he states resolved, not on any blood thinners), HTN, HLD, DM, BPH and [place] (Cabg one year ago) was sent to the ED from the [facility] for evaluation of irregular HR. He states he went to the [place] today to get a note for work and they were concerned about his HR. He was recently admitted to [facility] on 03/03 after having a syncopal episode. At this time he was told he had elevated troponin's but declined further workup. He states he had afib a year ago before his cabg and he states it resolved on his own. He was never placed on blood thinners. No cardiac cath or stress test since his cabg 1 year ago. He denies any chest pain, sob, fever, chills, nausea or vomiting. In the ED patient was found to have positive orthostatics. He does complain of some dizziness when standing up, and feels his equal Librium is off. 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 Jung CBC/BMP: 03/08/17 0512 03/08/17 0512 Significant Findings Laboratory Tests Test 03/07/17 17:30 03/07/17 17:40 03/07/17 23:00 03/08/17 05:12 Red Blood Count 3.77 MIL/MM3 (4.50-5.90) 3.72 MIL/MM3 (4.50-5.90) Hemoglobin 11.8 GM/DL (13.0-17.0) 11.5 GM/DL (13.0-17.0) Hematocrit 35.0 % (39.0-51.0) 34.3 % (39.0-51.0) Neutrophils (%) (Auto) 71.5 % (16.0-70.0) Monocytes (%) (Auto) 9.5 % (0.0-8.0) 11.2 % (0.0-8.0) Random Glucose 122 MG/DL (74-106) 112 MG/DL (74-106) Albumin 3.2 GM/DL (3.4-5.0) Estimat Glomerular Filtration Rate 83 ML/MIN (>89) 87 ML/MIN (>89) Total Creatine Kinase 309 U/L (39-308) Creatine Kinase MB 12.4 NG/ML (0.5-3.6) Urine Protein 30 mg/dL (NEG-TRACE) Troponin I 0.06 NG/ML (0.02-0.05) Imaging Last Impressions Myocardial Perfusion Scan Nuc Med 03/08/17 0000 Signed Impressions: Service Date/Time: February 13:31 - CONCLUSION: 1. No left ventricle perfusion abnormality is identified to suggest stress-induced ischemia. 2. However, there is abnormal wall motion with global hypokinesia and akinesia of the septum. Left ventricle ejection fraction is reduced at 30%%. RISK CATEGORY: High (>3%% Annual Mortality Rate) Beck Naik MD Chest X-Ray 03/07/17 9057 Signed Impressions: Service Date/Time: Tuesday, March 07, 2017 17:53 - CONCLUSION: No acute disease. Jared Luke Jr., MD PE at Discharge GENERAL: This is a well-nourished, well-developed patient, in no apparent distress. SKIN: Left eye chronic abrasion from fall one week ago, ecchymosis to bilateral eyes and jaw extending to neck CARDIOVASCULAR: Regular rate and irregular rhythm without murmurs, gallops, or rubs. RESPIRATORY: Diminished breath sounds bilaterally. No wheezes, rales, or rhonchi. GASTROINTESTINAL: Abdomen soft, non-tender, nondistended. BS x 4 MUSCULOSKELETAL: Extremities without clubbing, cyanosis, or edema. No joint tenderness, effusion, or edema noted. No calf tenderness. NEUROLOGICAL: Awake and alert. Motor and sensory grossly within normal limits. Normal speech. Hospital Course 66 y/o male with a history of afib (that he states resolved, not on any blood thinners), HTN, HLD, DM, BPH and [place] (Cabg one year ago) was sent to the ED from the [place] for evaluation of irregular HR. Afib with CVR EKG reviewed and shows afib rvr -Stress test without ischemia but showed decreased EF. Continue lisinopril and Coreg. Patient agrees to be restarted on anticoagulation benefits outweigh risks. Patient has prescription of Xarelto at home. Discussed with cardiology he will need cardioversion outpatient after 3 weeks of anticoagulation -Monitor telemetry -Resume home medications when verified amiodarone discontinue aspirin. Orthostatic hypotension. Resolved Elevated troponin, troponin .05 -As above Forehead laceration, chronic from fall 5 days ago -Ultram for pain >5, Tylenol pain 1-5 -ICE as needed DVT prophylaxis: SCDs Pt Condition on Discharge: Stable Discharge Disposition: Discharge Home Discharge Time: > 30 minutes Discharge Instructions Activities you can perform: Regular-No Restrictions Activities to Avoid: Driving Follow up Referrals: Cardiology - 03/16/17 [facility] New Medications: Rivaroxaban (Xarelto) 20 Mg Tab 20 MG PO DAILY for Blood Clot Prevention for 30 Days, #30 TAB 0 Refills Carvedilol (Coreg) 6.25 Mg Tab 6.25 MG PO Q12HR for Regulate Heart Beat, #60 TAB Lisinopril (Lisinopril) 10 Mg Tab 10 MG PO DAILY for Blood Pressure Management, #30 TAB Continued Medications: Amiodarone (Amiodarone) 200 Mg Tab 200 MG PO DAILY for Regulate Heart Beat, #30 TAB 0 Refills Atorvastatin (Atorvastatin) 80 Mg Tab 80 MG PO HS for Cholesterol Management, #30 TAB 0 Refills Docusate Calcium (Surfak) 240 Mg Cap 240 MG PO DAILY for Prevent Constipation, #30 CAP 0 Refills Metformin (Metformin) 850 Mg Tab 850 MG PO DAILY for Blood Sugar Management, TAB 0 Refills With a meal Nitroglycerin SL (Nitroglycerin SL) 0.4 Mg Subl 0.4 MG SL DIRECTED PRN for CHEST PAIN, #100 TAB.SL 0 Refills ONE TABLET UNDER THE TONGUE NEEDED FOR CHEST PAIN, MAY REPEAT EVERY FIVE MINUTES FOR A TOTAL OF 3 DOSES OR CALL 911 IF NO RELIEF Tamsulosin (Tamsulosin) 0.4 Mg Cap 0.4 MG PO HS for Manage Prostate Problems, #30 CAP 0 Refills Discontinued Medications: Aspirin (Aspirin) 81 Mg Chew 81 MG CHEW DAILY, TAB 0 Refills Lisinopril (Lisinopril) 20 Mg Tab 20 MG PO DAILY, #30 TAB 0 Refills Raudel Martinez MD Mar 09, 2017 11:51
[2017-03-09 12:19] VITALS: BP 134/78; PULSE 63; RESP 22; TEMP 98.6; O2SAT 97
[2017-03-09] MEDS ORDERED: XARE20TA PO (14:09)
--- NOTE | 2017-03-09 14:20 | PD.CARD.PN ---
Subjective Subjective Remarks No CP or SOB, feels fine, wants to go back to work Objective Medications Current Medications Medications (Trade) Dose Ordered Sig/Ela Route Start Time Stop Time Status Last Admin (NS Flush) 2 ml UNSCH PRN IV FLUSH 03/07/17 20:00 (NS Flush) 2 ml BID IV FLUSH 03/07/17 21:00 03/09/17 07:53 (Lovenox Inj) 85 mg Q12H SQ 03/07/17 21:00 Future Hold 03/07/17 21:20 (Ultram) 50 mg Q8H PRN PO 03/07/17 21:00 03/09/17 07:54 (Tylenol) 650 mg Q4H PRN PO 03/08/17 08:15 03/08/17 10:42 (Zofran Inj) 4 mg Q6H PRN IVP 03/08/17 08:15 (Tylenol) 650 mg Q6H PRN PO 03/08/17 08:15 (Narcan Inj) 0.4 mg UNSCH PRN IV PUSH 03/08/17 08:15 (Celestina-Colace) 1 tab BID PO 03/08/17 09:00 03/09/17 07:53 (Milk Of Magnesia Liq) 30 ml Q12H PRN PO 03/08/17 08:15 (Senokot) 17.2 mg Q12H PRN PO 03/08/17 08:15 (Dulcolax Supp) 10 mg DAILY PRN RECTAL 03/08/17 08:15 (Lactulose Liq) 30 ml DAILY PRN PO 03/08/17 08:15 Sodium Chloride 1,000 ml @ 100 mls/hr Q10H IV 03/08/17 09:00 03/08/17 21:38 (Cordarone) 200 mg DAILY PO 03/08/17 09:00 03/09/17 07:53 (Aspirin Chew) 81 mg DAILY CHEW 03/08/17 09:00 03/09/17 07:54 (Lipitor) 80 mg HS PO 03/08/17 21:00 03/08/17 21:35 (Glucophage) 850 mg DAILY PO 03/08/17 09:00 03/09/17 07:54 (Nitrostat Sl) 0.4 mg 5 TIMES A DAY PRN SL 03/08/17 08:15 (D50w (Vial) Inj) 50 ml UNSCH PRN IV PUSH 03/08/17 08:30 (Glucagon Inj) 1 mg UNSCH PRN OTHER 03/08/17 08:30 (NovoLOG SUPPLEMENTAL SCALE) 1 ACHS SLIDING SCALE SQ 03/08/17 12:00 03/08/17 21:37 (Coreg) 6.25 mg Q12HR PO 03/08/17 21:00 03/09/17 07:54 (Prinivil) 10 mg DAILY PO 03/08/17 20:30 03/09/17 07:54 Vital Signs / I&O Vital Signs Date Time Temp Pulse Resp B/P (MAP) Pulse Ox O2 Delivery O2 Flow Rate FiO2 03/09/17 12:19 98.6 63 22 134/78 (96) 97 03/09/17 10:23 98.1 62 22 124/76 (92) 94 146/75 (98) 124/64 (84) 03/09/17 08:33 97.6 62 20 141/80 (100) 96 03/09/17 03:54 97.5 61 16 146/80 (102) 96 03/09/17 00:40 97.6 61 18 137/68 (91) 97 03/09/17 00:05 62 03/08/17 20:05 62 03/08/17 19:43 98.0 66 18 131/66 (87) 96 129/65 (86) 145/70 (95) 03/08/17 16:35 97.6 62 20 155/71 (99) 98 I/O 03/08/17 03/08/17 03/08/17 03/09/17 03/09/17 03/09/17 07:00 15:00 23:00 07:00 15:00 23:00 Intake Total 990 ml Output Total 400 ml Balance 590 ml Intake Oral 990 ml Output Urine Total 400 ml # Voids 2 Physical Exam GENERAL: In NAD SKIN: Warm and dry. HEAD: Normocephalic. Multiple facial bruises. EYES: No scleral icterus. No injection or drainage. NECK: Supple, trachea midline. No JVD or lymphadenopathy. CARDIOVASCULAR: Regular rate and rhythm, 2/6 syst murmur, no gallop or rub. RESPIRATORY: Breath sounds equal bilaterally. No accessory muscle use. GASTROINTESTINAL: Abdomen soft, non-tender, nondistended. MUSCULOSKELETAL: No cyanosis, or edema. BACK: Nontender without obvious deformity. No CVA tenderness. Assessment and Plan Problem List: (1) Atrial fibrillation and flutter ICD Codes: I48.91 - Unspecified atrial fibrillation; I48.92 - Unspecified atrial flutter (2) CAD (coronary artery disease) ICD Codes: I25.10 - Atherosclerotic heart disease of [place] coronary artery without angina pectoris (3) Hx of CABG ICD Codes: Z95.1 - Presence of aortocoronary bypass graft (4) HTN (hypertension) ICD Codes: I10 - Essential (primary) hypertension (5) Diabetes ICD Codes: E11.9 - Type 2 diabetes mellitus without complications Assessment and Plan No new cardiac issues. In a flutter with controlled VR. Nuc ST w no evidence of ischemia. Recent echo with preserved LV syst fx. Start full anticoagulation. Continue rate control. Continue risk factor modification. I recommend cardioversion after 3 weeks of therapeutic anticoagulation. He has an appointment with his warehouse material handler at [facility] next week. Verónica Harris MD Mar 09, 2017 14:20
== END 2017-03-09 15:16 | disposition home or self-care (01) ==
LOC: NEPE 15:51 → NEDA 19:18 → NEPHCDU 20:46
PROVIDERS: ADMIT Internal Medicine; ATTEND Internal Medicine
DX: R74.8 Abnormal levels of other serum enzymes (principal); I95.1 Orthostatic hypotension; I48.2 Chronic atrial fibrillation; S01.81XA Laceration without foreign body of other part of head, initial encounter; R55 Syncope and collapse; R42 Dizziness and giddiness; I48.92 Unspecified atrial flutter; R00.0 Tachycardia, unspecified; R00.1 Bradycardia, unspecified; R07.9 Chest pain, unspecified; I25.10 Atherosclerotic heart disease of native coronary artery without angina pectoris; I10 Essential (primary) hypertension; E78.5 Hyperlipidemia, unspecified; E11.40 Type 2 diabetes mellitus with diabetic neuropathy, unspecified; I25.2 Old myocardial infarction; N40.0 Benign prostatic hyperplasia without lower urinary tract symptoms; F20.0 Paranoid schizophrenia; Z87.891 Personal history of nicotine dependence; Z79.899 Other long term (current) drug therapy; Z79.82 Long term (current) use of aspirin; Z79.84 Long term (current) use of oral hypoglycemic drugs; Z95.1 Presence of aortocoronary bypass graft; Z89.412 Acquired absence of left great toe; Z89.411 Acquired absence of right great toe; W19.XXXA Unspecified fall, initial encounter
CPT/HCPCS: 71010; 78452; 80048; 80053; 81001; 82550; 82552; 82948; 83690; 83735; 84443; 84484; 85025; 85610; 85730; 93005; 93017; 96360; 96372; 97162; 99285; A9502; G0378; G8987; G8988; J1650; J1815; J7030; J2785

== ENCOUNTER 2017-04-13 10:12 | Emergency (ER) | payer OTHER ==
[~2017-04-13] VITALS: Ht 170.2 cm; Wt 86.0 kg
[~2017-04-13 10:12] MED LIST changes: -ASPI-516 CHEW; +CARV6.25 PO; -LISI-515 PO; +LISI10TA3 PO
[2017-04-13 10:19] VITALS: BP 194/88; PULSE 63; RESP 20; TEMP 98.7; O2SAT 97
[2017-04-13] MEDS ORDERED: ASPI-516 CHEW (10:31)
[2017-04-13] MEDS ORDERED: FLEE5TAB PO (10:31)
[2017-04-13] MEDS ORDERED: SODIUM CHLORIDE 0.9% FLUSH 10 ML FLUSH IVF PRN (10:45)
[2017-04-13 10:56] LABS: AUTOMATED NEUTROPHIL # 5.7 TH/MM3 (1.8-7.7); BASOPHIL # 0.1 TH/MM3 (0-0.2); BASOPHIL % 1.2 % (0.0-2.0); EOSINOPHIL # 0.3 TH/MM3 (0-0.4); EOSINOPHIL % 3.1 % (0.0-4.0); HEMATOCRIT 33.8 % (39.0-51.0); HEMO FLAGS DIFF FINAL; LYMPH % 15.8 % (9.0-44.0); LYMPHOCYTE # 1.3 TH/MM3 (1.0-4.8); MEAN CELL VOLUME 92.1 FL (80.0-100.0); MEAN CORPUSCULAR HGB CONC 33.7 % (32.0-36.0); MONO % 9.9 % (0.0-8.0); PLATELET COUNT 316 TH/MM3 (150-450); RED BLOOD COUNT 3.68 MIL/MM3 (4.50-5.90); RED CELL DISTRIBUTION WIDTH 15.4 % (11.6-17.2); WHITE BLOOD COUNT 8.1 TH/MM3 (4.0-11.0)
[2017-04-13 11:03] LABS: APTT (PATIENT) 30.8 SEC (24.3-30.1); INTERNATIONAL NORMALIZED RATIO 1.2 RATIO; PROTHROMBIN TIME - PATIENT 11.8 SEC (9.8-11.6)
--- NOTE | 2017-04-13 11:04 | RADRPT ---
EXAM DATE/TIME: 04/13/2017 10:46 [facility] COMPARISON: CHEST SINGLE AP, March 07, 2017, 17:53. INDICATIONS : Shortness of breath. MEDICAL HISTORY : Hypertension. Diabetes mellitus type 2. Myocardial infarction SURGICAL HISTORY : CABG. ENCOUNTER: Initial ACUITY: 1 day PAIN SCORE: 0/10 LOCATION: Bilateral chest FINDINGS: A single view of the chest demonstrates the lungs to be symmetrically aerated with no acute infiltrat e. There is some blunting of the right costophrenic angle characteristics of a small effusion. Heart size is borderline but appears to be well compensated. Intact median sternotomy wires with an apparen t atrial appendage clip projecting over the left side of the heart. Osseous structures are intact. CONCLUSION: 1. Blunting of right costophrenic angle may represent a small effusion. Lungs are otherwise clear. 2. Heart size is borderline prominent but well compensated. Stable postsurgical changes Randal Tobar MD on April 13, 2017 at 10:59 Board Certified Radiologist. This report was verified electronically.
[2017-04-13 12:00] VITALS: BP 161/80; PULSE 91; RESP 20; O2SAT 98
[2017-04-13 12:43] LABS: ALKALINE PHOSPHATASE 101 U/L (45-117); TOTAL BILIRUBIN ADULT 0.4 MG/DL (0.2-1.0)
[2017-04-13 12:49] LABS: ALT (GPT) 33 U/L (12-78); ANION GAP 5 MEQ/L (5-15); AST (GOT) 28 U/L (15-37); BICARBONATE 27.6 MEQ/L (21.0-32.0); BLOOD UREA NITROGEN 14 MG/DL (7-18); CHLORIDE 103 MEQ/L (98-107); GLOMERULAR FILTRATION RATE 83 ML/MIN (>89); POTASSIUM 4.6 MEQ/L (3.5-5.1); SODIUM (NA) 136 MEQ/L (136-145)
[2017-04-13] MEDS ORDERED: FURO1TAB62 PO (14:00)
--- NOTE | 2017-04-13 14:00 | PD ---
HPI Chief Complaint: Abnormal Results Time Seen by Provider: 10:24 Travel History International Travel<30 days: No Contact w/Intl Traveler<30days: No Traveled to known affect area: No History of Present Illness HPI Patient is a 66-year-old male sent from the [place] due to concern for fluid on his lungs. Patient has no complaints. He said he went to the [place] for routine follow -up. He denies chest pain or shortness of breath. He does say he feels some shortness of breath on exertion. He denies leg swelling. He does not take a diuretic. 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) Neurologic: No Psychiatric: No Reproductive: No Respiratory: No Integumentary: Yes (ULCER TO LEFT FOOT) Myocardial Infarction: Yes Radiation Therapy: No Schizophrenia: Yes (PARANOID) Sleep Apnea: No Thyroid Disease: No Influenza Vaccination: Yes Past Surgical History Cardiac Surgery: Yes Coronary Artery Bypass Graft: Yes Coronary Stent: Yes Other Surgery: Yes (BILATERAL HALLUX APUTATION, CABG x1, STENT PLACED) Social History Alcohol Use: Yes (ocassionally) Tobacco Use: No Substance Use: No Allergies-Medications (Allergen,Severity, Reaction): Coded Allergies: No Known Allergies (Verified Allergy, Unknown, 04/13/17) Reported Meds & Prescriptions Reported Meds & Active Scripts Active Lasix (Furosemide) 20 Mg Tab 20 Mg PO DAILY Xarelto (Rivaroxaban) 20 Mg Tab 20 Mg PO DAILY 30 Days Lisinopril 10 Mg Tab 10 Mg PO DAILY Coreg (Carvedilol) 6.25 Mg Tab 6.25 Mg PO Q12HR Reported Aspirin 81 Mg Chew 81 Mg CHEW DAILY Bisacodyl EC (Bisacodyl) 5 Mg Tabec 5 Mg PO DIRECTED PRN Metformin (Metformin HCl) 850 Mg Tab 850 Mg PO DAILY With a meal Nitroglycerin SL (Nitroglycerin) 0.4 Mg Subl 0.4 Mg SL DIRECTED PRN ONE TABLET UNDER THE TONGUE NEEDED FOR CHEST PAIN, MAY REPEAT EVERY FIVE MINUTES FOR A TOTAL OF 3 DOSES OR CALL 911 IF NO RELIEF Tamsulosin (Tamsulosin HCl) 0.4 Mg Cap 0.4 Mg PO HS Atorvastatin (Atorvastatin Calcium) 80 Mg Tab 80 Mg PO HS Amiodarone (Amiodarone HCl) 200 Mg Tab 200 Mg PO DAILY Review of Systems Except as stated in HPI: all other systems reviewed are Neg General / Constitutional: No: Fever, Chills HENT: No: Headaches, Lightheadedness Cardiovascular: No: Chest Pain or Discomfort, Palpitations Respiratory: Positive: Cough, No: Shortness of Breath Gastrointestinal: No: Nausea, Vomiting Musculoskeletal: No: Myalgias, Edema Skin: No Rash, No Change in Pigmentation Neurologic: No: Weakness, Dizziness Physical Exam Narrative GENERAL: Awake and alert, in no acute distress. SKIN: Focused skin assessment warm/dry. HEAD: Atraumatic. Normocephalic. EYES: Pupils equal and round. No scleral icterus. ENT: Mucous membranes pink and moist. NECK: Trachea midline. No JVD. CARDIOVASCULAR: Regular rate and rhythm. No murmur appreciated. RESPIRATORY: No accessory muscle use. Clear to auscultation. Breath sounds equal bilaterally. GASTROINTESTINAL: Abdomen soft, non-tender, nondistended. MUSCULOSKELETAL: No obvious deformities. No clubbing. No cyanosis. No edema. NEUROLOGICAL: Awake and alert. No obvious cranial nerve deficits. Motor grossly within normal limits. Normal speech. PSYCHIATRIC: Appropriate mood and affect; insight and judgment normal. Data Data Last Documented VS Vital Signs Date Time Temp Pulse Resp B/P (MAP) Pulse Ox O2 Delivery O2 Flow Rate FiO2 04/13/17 13:59 04/13/17 12:00 91 20 98 Room Air 04/13/17 10:19 98.7 Orders Orders Complete Blood Count With Diff (04/13/17 10:33) Comprehensive Metabolic Panel (04/13/17 10:33) B-Type Natriuretic Peptide (04/13/17 10:33) Act Partial Throm Time (Ptt) (04/13/17 10:33) Prothrombin Time / Inr (Pt) (04/13/17 10:33) Troponin I (04/13/17 10:33) Iv Access Insert/Monitor (04/13/17 10:33) Ecg Monitoring (04/13/17 10:33) Oximetry (04/13/17 10:33) Oxygen Administration (04/13/17 10:33) Chest, Single Ap (04/13/17 10:33) Sodium Chloride 0.9% Flush (Ns Flush) (04/13/17 10:45) Electrocardiogram (04/13/17 10:33) Ed Discharge Order (04/13/17 14:00) Labs Laboratory Tests Test 04/13/17 10:40 04/13/17 12:05 White Blood Count 8.1 TH/MM3 Red Blood Count 3.68 MIL/MM3 Hemoglobin 11.4 GM/DL Hematocrit 33.8 % Mean Corpuscular Volume 92.1 FL Mean Corpuscular Hemoglobin 31.0 PG Mean Corpuscular Hemoglobin Concent 33.7 % Red Cell Distribution Width 15.4 % Platelet Count 316 TH/MM3 Mean Platelet Volume 8.2 FL Neutrophils (%) (Auto) 70.0 % Lymphocytes (%) (Auto) 15.8 % Monocytes (%) (Auto) 9.9 % Eosinophils (%) (Auto) 3.1 % Basophils (%) (Auto) 1.2 % Neutrophils # (Auto) 5.7 TH/MM3 Lymphocytes # (Auto) 1.3 TH/MM3 Monocytes # (Auto) 0.8 TH/MM3 Eosinophils # (Auto) 0.3 TH/MM3 Basophils # (Auto) 0.1 TH/MM3 CBC Comment DIFF FINAL Differential Comment Prothrombin Time 11.8 SEC Prothromb Time International Ratio 1.2 RATIO Activated Partial Thromboplast Time 30.8 SEC B-Type Natriuretic Peptide 70 PG/ML Blood Urea Nitrogen 14 MG/DL Creatinine 0.91 MG/DL Random Glucose 122 MG/DL Total Protein 7.0 GM/DL Albumin 3.5 GM/DL Calcium Level 8.6 MG/DL Alkaline Phosphatase 101 U/L Aspartate Amino Transf (AST/SGOT) 28 U/L Alanine Aminotransferase (ALT/SGPT) 33 U/L Total Bilirubin 0.4 MG/DL Sodium Level 136 MEQ/L Potassium Level 4.6 MEQ/L Chloride Level 103 MEQ/L Carbon Dioxide Level 27.6 MEQ/L Anion Gap 5 MEQ/L Estimat Glomerular Filtration Rate 83 ML/MIN Troponin I 0.03 NG/ML MDM Medical Decision Making Medical Screen Exam Complete: Yes Emergency Medical Condition: Yes Medical Record Reviewed: Yes Interpretation(s) ECG shows atrial flutter at a rate of 66 Differential Diagnosis CHF exacerbation versus dependent edema versus pneumonia versus bronchitis Narrative Course Patient is a 66-year-old male sent from the [place] because of concern for fluid on his lungs. Patient has no complaints. IV established, labs sent. Labs show no acute abnormalities. Chest x-ray shows very mild right-sided pleural effusion. Patient given a prescription for 20 mg Lasix. Advised follow-up at the [place]. Advised return any time for any worsening symptoms. Patient is comfortable discharge at this time. Last 24 hours Impressions Chest X-Ray 04/13/17 1033 Signed Impressions: Service Date/Time: Thursday, April 13, 2017 10:46 - CONCLUSION: 1. Blunting of right costophrenic angle may represent a small effusion. Lungs are otherwise clear. 2. Heart size is borderline prominent but well compensated. Stable postsurgical changes Randal Tobar MD Diagnosis Primary Impression: Edema Qualified Codes: R60.9 - Edema, unspecified Patient Instructions: Edema (ED), General Instructions Additional Instructions: Follow-up with her primary care physician. Take the Lasix as directed. Return to the ED as needed for any worsening symptoms. Scripts Furosemide (Lasix) 20 Mg Tab 20 MG PO DAILY, #10 TAB 0 Refills Prov: Sherin Sierra MD 04/13/17 Disposition: 01 DISCHARGE HOME Condition: Stable Sherin Sierra MD Apr 13, 2017 14:00
--- NOTE | 2017-04-14 09:29 | EKG ---
Date Performed: 04/13/2017 Time Performed: 10:33:06 PTAGE: 66 years EKG: ATRIAL FLUTTER/TACHYCARDIA INFERIOR MYOCARDIAL INFARCTION MODERATE T-WAVE ABNORMALITY, CONS IDER LATERAL ISCHEMIA ABNORMAL ECG NO PREVIOUS TRACING DOCTOR: Shae Talbot Interpretating Date/Time 04/14/2017 09:27:39
== END 2017-04-13 14:43 | disposition home or self-care (01) ==
LOC: NEPE 10:12
DX: R60.9 Edema, unspecified (principal); I48.91 Unspecified atrial fibrillation; E11.9 Type 2 diabetes mellitus without complications; I10 Essential (primary) hypertension
CPT/HCPCS: 71010; 80053; 83880; 84484; 85025; 85610; 85730; 93005